=== PATIENT | female | born 1930 | race Caucasian/White ===

== ENCOUNTER → 2016-05-11 | Outpatient (CLI) | payer MEDICARE, BC ==
--- NOTE | 2016-05-11 15:38 | XR ---
EXAMINATION TYPE: XR chest 2V DATE OF EXAM: 05/11/2016 2:34 PM COMPARISON: 01/18/2013 HISTORY: 85-year-old female with cough TECHNIQUE: Frontal and lateral views FINDINGS: S-shaped scoliosis. Advanced degenerative change at the right shoulder. Possible chronic subluxation/ dislocation at the left shoulder. Heart is normal size. Similar mild elongation of the thoracic aorta. Relative upper lung lucencies an d mild hyperinflation. Mild interstitial prominence is unchanged as are prominent right-sided rib end s. No consolidation or pleural effusion. IMPRESSION: 1. Possible underlying COPD. No acute process seen. 2. Scoliosis and chronic changes at both shoulders.
== END | disposition home or self-care (01) ==
LOC: RADXRMAIN 13:59
PROVIDERS: ATTEND Family Medicine
DX: R05 Cough (principal)
CPT/HCPCS: 71020

== ENCOUNTER 2016-12-06 11:59 | Observation (INO) | payer MEDICARE, BC ==
[2016-12-06] MEDS ORDERED: SODIUM CHLORIDE 0.9% 500 ML IV STA (12:08)
[2016-12-06] MEDS ORDERED: MORPHINE SULFATE 2 MG/ML SYRINGE IVP STA (12:08)
--- NOTE | 2016-12-06 12:15 | ED ---
General Adult HPI - General Chief complaint: Back Pain/Injury Stated complaint: Back Pain Time Seen by Provider: 12/06/16 12:00 Source: patient, EMS, RN notes reviewed Mode of arrival: EMS Limitations: no limitations - History of Present Illness Initial comments: This is an 86-year-old female presents emergency department via EMS as of right upper back pain. Patient states she's had this pain many times before but today it was a little more severe so she called EMS. On arrival patient is tachycardic but she denies having any palpitations. Patient denies any chest pain patient denies radiation of the back pain. Patient denies any shortness of breath patient denies any recent fever chills or cough. Patient denies any calf pain patient denies any leg swelling. Patient states the pain is worse with movement and it hurts to palpate that area in her back. Patient denies any lightheadedness dizziness or syncopal episode. Patient denies any abdominal pain patient denies nausea vomiting diarrhea. - Related Data Home Medications Medication Instructions Recorded Confirmed amLODIPine BESYLATE [Norvasc] 5 mg PO DAILY 09/06/13 12/06/16 clonazePAM [KlonoPIN] 0.5 mg PO BID PRN 09/06/13 12/06/16 fluvoxaMINE [Luvox] 100 mg PO TID 09/06/13 12/06/16 lamoTRIgine [LaMICtal] 200 mg PO TID 09/06/13 12/06/16 Multivitamins, Thera [Multivitamin 1 tab PO DAILY 12/06/16 12/06/16 (formulary)] Allergies Allergy/AdvReac Type Severity Reaction Status Date / Time codeine AdvReac Nausea & Verified 12/06/16 13:04 Vomiting Review of Systems ROS Statement: Those systems with pertinent positive or pertinent negative responses have been documented in the HPI. ROS Other: All systems not noted in ROS Statement are negative. Past Medical History Past Medical History: GERD/Reflux, Hyperlipidemia, Hypertension Additional Past Medical History / Comment(s): Diverticulosis History of Any Multi-Drug Resistant Organisms: None Reported Past Surgical History: Appendectomy, Joint Replacement Additional Past Surgical History / Comment(s): Lt knee replacement x2 Past Psychological History: Anxiety, Depression Smoking Status: Never smoker Past Alcohol Use History: None Reported Past Drug Use History: None Reported General Exam - General Exam Comments Initial Comments: GENERAL: Patient is well-developed and well-nourished. Patient is nontoxic and well- hydrated and is in mild distress. ENT: Neck is soft and supple. No significant lymphadenopathy is noted. Oropharynx is clear. Moist mucous membranes. Neck has full range of motion without eliciting any pain. EYES: The sclera were anicteric and conjunctiva were pink and moist. Extraocular movements were intact and pupils were equal round and reactive to light. Eyelids were unremarkable. PULMONARY: Unlabored respirations. Good breath sounds bilaterally. No audible rales rhonchi or wheezing was noted. CARDIOVASCULAR: Patient is tachycardic at approximately 130 beats minute ABDOMEN: Soft and nontender with normal bowel sounds. No palpable organomegaly was noted. There is no palpable pulsatile mass. SKIN: Skin is clear with no lesions or rashes and otherwise unremarkable. NEUROLOGIC: Patient is alert and oriented x3. Cranial nerves II through XII are grossly intact. Motor and sensory are also intact. Normal speech, volume and content. Symmetrical smile. MUSCULOSKELETAL: Normal extremities with adequate strength and full range of motion. Palpating just medial to the right scapula causes the patient the same pain that she states she is here for. LYMPHATICS: No significant lymphadenopathy is noted PSYCHIATRIC: Normal psychiatric evaluation. Normal interpersonal interactions appears functionally intact in deals appropriately with others. No signs of depression. No signs of anxiety. No delusions. No hallucinations. Limitations: no limitations Course Vital Signs 12/06/16 12/06/16 12/06/16 12:04 12:53 14:06 Temperature 99.4 F Pulse Rate 129 H 113 H 115 H Respiratory 16 20 20 Rate Blood Pressure 159/88 141/82 135/79 O2 Sat by Pulse 96 99 98 Oximetry Medical Decision Making - Medical Decision Making EKG shows sinus tachycardia at 129 bpm VT interval is 138 QRS is under 26 QT interval 322 QTC is 471 per patient's EKG shows no ST segment elevation or depression or T wave abnormalities are noted. Patient left bundle branch block. Patient CAT scan it shows no PE but does however show 2 compression fractures in thoracic spine. Patient's family members stated that they believe these are old because they have been seeing the orthopedic surgeon for these. Patient remains tachycardic at about 120 beats a minute I spoke with Dr. Rooney he agrees we should admit the patient I admitted the patient and I consult cardiology - Lab Data Result diagrams: 12/06/16 12:10 12/06/16 12:10 Lab Results 12/06/16 12/06/16 12/06/16 Range/Units 12:10 12:10 12:10 WBC 10.9 H (3.8-10.6) k/uL RBC 4.47 (3.80-5.40) m/uL Hgb 13.7 (11.4-16.0) gm/dL Hct 41.7 (34.0-46.0) % MCV 93.2 (80.0-100.0) fL MCH 30.7 (25.0-35.0) pg MCHC 32.9 (31.0-37.0) g/dL RDW 13.6 (11.5-15.5) % Plt Count 550 H (150-450) k/uL Neutrophils % 72 % Lymphocytes % 18 % Monocytes % 6 % Eosinophils % 1 % Basophils % 1 % Neutrophils # 7.9 H (1.3-7.7) k/uL Lymphocytes # 2.0 (1.0-4.8) k/uL Monocytes # 0.7 (0-1.0) k/uL Eosinophils # 0.1 (0-0.7) k/uL Basophils # 0.1 (0-0.2) k/uL PT (9.0-12.0) sec INR (<1.2) APTT (22.0-30.0) sec Sodium 132 L (137-145) mmol/L Potassium 4.7 (3.5-5.1) mmol/L Chloride 97 L (98-107) mmol/L Carbon Dioxide 26 (22-30) mmol/L Anion Gap 9 mmol/L BUN 11 (7-17) mg/dL Creatinine 0.71 (0.52-1.04) mg/dL Est GFR (MDRD) Af Amer >60 (>60 ml/min/1.73 sqM) Est GFR (MDRD) Non-Af >60 (>60 ml/min/1.73 sqM) Glucose 103 H (74-99) mg/dL Calcium 9.0 (8.4-10.2) mg/dL Magnesium 1.8 (1.6-2.3) mg/dL Total Bilirubin 0.6 (0.2-1.3) mg/dL AST 26 (14-36) U/L ALT 27 (9-52) U/L Alkaline Phosphatase 108 (38-126) U/L Total Creatine Kinase 88 (30-135) U/L CK-MB (CK-2) 3.0 H* (0.0-2.4) ng/mL CK-MB (CK-2) Rel Index 3.4 Troponin I (0.000-0.034) ng/mL Total Protein 7.0 (6.3-8.2) g/dL Albumin 4.3 (3.5-5.0) g/dL Urine Color Urine Appearance (Clear) Urine pH (5.0-8.0) Ur Specific [place] (1.001-1.035) Urine Protein (Negative) Urine Glucose (UA) (Negative) Urine Ketones (Negative) Urine Blood (Negative) Urine Nitrite (Negative) Urine Bilirubin (Negative) Urine Urobilinogen (<2.0) mg/dL Ur Leukocyte Esterase (Negative) 12/06/16 12/06/16 12/06/16 Range/Units 12:10 12:10 12:10 WBC (3.8-10.6) k/uL RBC (3.80-5.40) m/uL Hgb (11.4-16.0) gm/dL Hct (34.0-46.0) % MCV (80.0-100.0) fL MCH (25.0-35.0) pg MCHC (31.0-37.0) g/dL RDW (11.5-15.5) % Plt Count (150-450) k/uL Neutrophils % % Lymphocytes % % Monocytes % % Eosinophils % % Basophils % % Neutrophils # (1.3-7.7) k/uL Lymphocytes # (1.0-4.8) k/uL Monocytes # (0-1.0) k/uL Eosinophils # (0-0.7) k/uL Basophils # (0-0.2) k/uL PT 10.0 (9.0-12.0) sec INR 1.0 (<1.2) APTT 26.8 (22.0-30.0) sec Sodium (137-145) mmol/L Potassium (3.5-5.1) mmol/L Chloride (98-107) mmol/L Carbon Dioxide (22-30) mmol/L Anion Gap mmol/L BUN (7-17) mg/dL Creatinine (0.52-1.04) mg/dL Est GFR (MDRD) Af Amer (>60 ml/min/1.73 sqM) Est GFR (MDRD) Non-Af (>60 ml/min/1.73 sqM) Glucose (74-99) mg/dL Calcium (8.4-10.2) mg/dL Magnesium (1.6-2.3) mg/dL Total Bilirubin (0.2-1.3) mg/dL AST (14-36) U/L ALT (9-52) U/L Alkaline Phosphatase (38-126) U/L Total Creatine Kinase (30-135) U/L CK-MB (CK-2) (0.0-2.4) ng/mL CK-MB (CK-2) Rel Index Troponin I <0.012 (0.000-0.034) ng/mL Total Protein (6.3-8.2) g/dL Albumin (3.5-5.0) g/dL Urine Color Urine Appearance (Clear) Urine pH (5.0-8.0) Ur Specific [place] (1.001-1.035) Urine Protein (Negative) Urine Glucose (UA) (Negative) Urine Ketones (Negative) Urine Blood (Negative) Urine Nitrite (Negative) Urine Bilirubin (Negative) Urine Urobilinogen (<2.0) mg/dL Ur Leukocyte Esterase (Negative) 12/06/16 Range/Units 13:09 WBC (3.8-10.6) k/uL RBC (3.80-5.40) m/uL Hgb (11.4-16.0) gm/dL Hct (34.0-46.0) % MCV (80.0-100.0) fL MCH (25.0-35.0) pg MCHC (31.0-37.0) g/dL RDW (11.5-15.5) % Plt Count (150-450) k/uL Neutrophils % % Lymphocytes % % Monocytes % % Eosinophils % % Basophils % % Neutrophils # (1.3-7.7) k/uL Lymphocytes # (1.0-4.8) k/uL Monocytes # (0-1.0) k/uL Eosinophils # (0-0.7) k/uL Basophils # (0-0.2) k/uL PT (9.0-12.0) sec INR (<1.2) APTT (22.0-30.0) sec Sodium (137-145) mmol/L Potassium (3.5-5.1) mmol/L Chloride (98-107) mmol/L Carbon Dioxide (22-30) mmol/L Anion Gap mmol/L BUN (7-17) mg/dL Creatinine (0.52-1.04) mg/dL Est GFR (MDRD) Af Amer (>60 ml/min/1.73 sqM) Est GFR (MDRD) Non-Af (>60 ml/min/1.73 sqM) Glucose (74-99) mg/dL Calcium (8.4-10.2) mg/dL Magnesium (1.6-2.3) mg/dL Total Bilirubin (0.2-1.3) mg/dL AST (14-36) U/L ALT (9-52) U/L Alkaline Phosphatase (38-126) U/L Total Creatine Kinase (30-135) U/L CK-MB (CK-2) (0.0-2.4) ng/mL CK-MB (CK-2) Rel Index Troponin I (0.000-0.034) ng/mL Total Protein (6.3-8.2) g/dL Albumin (3.5-5.0) g/dL Urine Color Colorless Urine Appearance Clear (Clear) Urine pH 7.0 (5.0-8.0) Ur Specific [place] 1.005 (1.001-1.035) Urine Protein Negative (Negative) Urine Glucose (UA) Negative (Negative) Urine Ketones Negative (Negative) Urine Blood Negative (Negative) Urine Nitrite Negative (Negative) Urine Bilirubin Negative (Negative) Urine Urobilinogen <2.0 (<2.0) mg/dL Ur Leukocyte Esterase Negative (Negative) Disposition Clinical Impression: Thoracic back pain, Tachycardia Disposition: ADMITTED IP TO THIS [facility] Referrals: Adriana Perla MD [Primary Care Provider] - 1-2 days Time of Disposition: 15:09
[2016-12-06 12:33] LABS: ALT 27 U/L (9-52); AST 26 U/L (14-36); Alkaline Phosphatase 108 U/L (38-126); Anion Gap 9 mmol/L; Blood Urea Nitrogen 11 mg/dL (7-17); Carbon Dioxide 26 mmol/L (22-30); Chloride 97 mmol/L (98-107); Glucose 103 mg/dL (74-99); Magnesium 1.8 mg/dL (1.6-2.3); Non-African American GFR(MDRD) >60 (>60 ml/min/1.73 sqM); Sodium 132 mmol/L (137-145); Total Bilirubin 0.6 mg/dL (0.2-1.3)
[2016-12-06 12:35] LABS: Basophils # (A) 0.1 k/uL (0-0.2); Basophils % (A) 1 %; CH 31.4; CHCM 33.8; Eosinophils # (A) 0.1 k/uL (0-0.7); Eosinophils % (A) 1 %; HCT 41.7 % (34.0-46.0); HDW 2.18; HGB 13.7 gm/dL (11.4-16.0); Luc # (Auto) 0.19; Luc % (Auto) 2; Lymphocytes % (A) 18 %; MCH 30.7 pg (25.0-35.0); MCHC 32.9 g/dL (31.0-37.0); MCV 93.2 fL (80.0-100.0); Mean Platelet Volume 7.5; Monocytes # (A) 0.7 k/uL (0-1.0); Monocytes % (A) 6 %; Neutrophils # (A) 7.9 k/uL (1.3-7.7); Neutrophils % (A) 72 %; RBC 4.47 m/uL (3.80-5.40); RDW 13.6 % (11.5-15.5); WBC 10.9 k/uL (3.8-10.6); WBC (Perox) 10.66
[2016-12-06 12:42] LABS: Potassium 4.7 mmol/L (3.5-5.1)
--- NOTE | 2016-12-06 12:46 | XR ---
EXAMINATION TYPE: XR chest 2V DATE OF EXAM: 12/06/2016 COMPARISON: 05/11/2016 HISTORY: 86-year-old female with chest pain TECHNIQUE: AP and lateral views FINDINGS: Heart is normal size. S-shaped scoliosis. Elongation/ectasia of the thoracic aorta. Nodular densities right suprahilar, infrahilar, and hilar regions appear more pronounced from prior exam. Underlying p ulmonary nodules not excluded. No edgardo consolidation or pleural effusion. Minimal strandy atelectasi s posterior base. End-stage degenerative change at the shoulders. IMPRESSION: Chronic changes with some right-sided perihilar nodularity increased from prior may represent summati on artifact. Underlying pulmonary nodules not excluded. Short interval follow-up radiographs versus c ontrast enhanced CT to further evaluate. Otherwise, no acute process.
[2016-12-06] MEDS ORDERED: RX INFO: IV CONTRAST WAS GIVEN 1 EACH MISC MISCELLANE PRN (13:10)
[2016-12-06 13:24] LABS: Appearance,Urine Clear (Clear); Bilirubin,Urine Negative (Negative); Glucose,Urine (UA) Negative (Negative); Ketones,Urine Negative (Negative); Leukocyte Esterase,Urine Negative (Negative); Nitrite,Urine Negative (Negative); Protein,Urine Negative (Negative); Specific Gravity,Urine 1.005 (1.001-1.035); UA Billing (MACRO vs. MICRO) CHEM; Urobilinogen,Urine <2.0 mg/dL (<2.0)
--- NOTE | 2016-12-06 14:27 | CT ---
EXAMINATION TYPE: CT chest angio for PE DATE OF EXAM: 12/06/2016 COMPARISON: 01/18/2013 HISTORY: 86-year-old female complains of upper back pain. TECHNIQUE: Contiguous axial scanning of the chest performed with IV Contrast, patient injected with 1 00 mL of Omnipaque 350. Coronal/sagittal MIP reconstructions performed. CT DLP: 529 mGycm Automated exposure control for dose reduction was used. FINDINGS: Heart is normal size. There is trace basilar pericardial fluid. Coronary vessel calcifications are pr esent and are remarkable for coronary artery disease. Aorta is normal caliber with conventional arch vessel branching anatomy with moderate atherosclerotic plaque and calcification. No aortic dissection is seen. Satisfactory opacification of the pulmonary arterial system without evidence for pulmonary embolus. No thoracic lymphadenopathy by CT size criteria. Evaluation of the lungs shows some mild dependent atelectasis, mild bibasilar bronchiectasis, no cons olidation or pleural effusion. Some retained fluid within the mid thoracic esophagus. Small hiatal hernia. Bones: Severe endstage degenerative change at the right greater than left shoulders with associated j oint effusion and ganglion cyst formation. Mild anterior wedging T7 and T8 is new from 01/18/2013. Superior endplate deformity of T1 and T12 with anterior wedging of L1 are stable from 01/18/2013. No retropulsion into the spinal canal. IMPRESSION: 1. NO EVIDENCE FOR PULMONARY EMBOLUS. 2. MILD ANTERIOR WEDGING OF T7 AND T8 IS NEW FROM 01/18/2013. THESE ARE AGE INDETERMINATE MILD KIRA LOR INJURIES. CORRELATE FOR FOCAL PAIN AT THESE LEVELS.
[2016-12-06] MEDS ORDERED: MORPHINE SULFATE 2 MG/ML SYRINGE IVP ONE (14:43)
[2016-12-06] MEDS ORDERED: KETOROLAC 30 MG/ML 1 ML VIAL IVP STA (14:43)
[2016-12-06] MEDS ORDERED: SODIUM CHLORIDE 0.9% 1,000 ML IV ONE (15:09)
[2016-12-06] MEDS: amLODIPine 5 MG TAB PO SCH (20:36)
[2016-12-06] MEDS: lamoTRIgine 100 MG TAB PO SCH (20:36)
[2016-12-06] MEDS: clonazePAM 0.5 MG TAB PO PRN (20:43)
[2016-12-07] MEDS: ACETAMINOPHEN TAB 325 MG TAB PO PRN ×2 (08:44→18:59)
[2016-12-07] MEDS: amLODIPine 5 MG TAB PO SCH (08:45)
[2016-12-07] MEDS: MULTIVITAMINS, THERA 1 EACH TAB PO SCH (08:45)
[2016-12-07] MEDS: lamoTRIgine 100 MG TAB PO SCH ×3 (08:45→20:30)
--- NOTE | 2016-12-07 08:45 | P.CRDCN ---
<Mable Craft E - Last Filed: 12/07/16 08:35> History of Present Illness Consult date: 12/07/16 Requesting physician: Ninoska Garza Reason for Consult (text): Tachycardia Chief complaint: Mid back discomfort History of present illness: This is a pleasant 86-year-old female with history of hypertension, hyperlipidemia, chronic back discomfort, who over the past couple of years walks with a walker and uses a wheelchair because of the pain she incurs with walking secondary to her back problems. She presents to the hospital with symptoms of mid to upper back discomfort which started yesterday. She states that the pain worsened with particular movements and on palpation of that particular area in her back. She denies any associated symptoms of chest discomfort, no shortness of breath, no dizziness or lightheadedness, no palpitations. EKG on arrival here showed a sinus tachycardia with a left bundle -branch block pattern. EKG which was performed in 2013 showed a left bundle- branch block pattern at that time as well. Chest x-ray reveals chronic changes with some right-sided perihilar nodularity increased from prior. May represent artifact. Underlying pulmonary nodules not excluded. CTA of the chest was performed which is negative for pulmonary embolism. Mild anterior wedging of T7 and T8 new from 2012. Mild compression injuries possible. Blood pressure on arrival 158/88, heart rate in the 120s. Temperature 99.4, 96% on room air. Blood pressure this morning 108/60 with a heart rate of 90s to 1 teens. White blood cell count on arrival 10.9, hemoglobin 13.7, platelet count 550. Sodium 132, potassium 4.7, BUN 11, creatinine 0.7. Troponin 0.012. At the time of my examination this morning, patient states the back pain is much improved. Past Medical History Past Medical History: GERD/Reflux, Hyperlipidemia, Hypertension Additional Past Medical History / Comment(s): Diverticulosis History of Any Multi-Drug Resistant Organisms: None Reported Past Surgical History: Appendectomy, Joint Replacement Additional Past Surgical History / Comment(s): Lt knee replacement x2 Past Psychological History: Anxiety, Depression Smoking Status: Never smoker Past Alcohol Use History: None Reported Past Drug Use History: None Reported Medications and Allergies Home Medications Medication Instructions Recorded Confirmed Type clonazePAM [KlonoPIN] 0.5 mg PO BID PRN 09/06/13 12/20/16 History fluvoxaMINE [Luvox] 100 mg PO TID 09/06/13 12/20/16 History lamoTRIgine [LaMICtal] 200 mg PO TID 09/06/13 12/20/16 History Multivitamins, Thera [Multivitamin 1 tab PO DAILY 12/06/16 12/20/16 History (formulary)] Lisinopril [Zestril] 5 mg PO DAILY #30 tab 12/08/16 12/20/16 Rx Metoprolol Tartrate 25 mg PO BID #60 tab 12/08/16 12/20/16 Rx Spironolactone [Aldactone] 25 mg PO DAILY #30 tablet 12/08/16 12/20/16 Rx amLODIPine [Norvasc] 5 mg PO DAILY 12/20/16 12/20/16 History Allergies Allergy/AdvReac Type Severity Reaction Status Date / Time codeine AdvReac Nausea & Verified 12/21/16 12:41 Vomiting Physical Exam Vitals: Vital Signs Temp Pulse Pulse Resp BP BP Pulse Ox 12/07/16 03:37 97.4 F L 113 H 18 108/63 93 L 12/07/16 03:35 113 H 18 12/07/16 00:00 97.1 F L 92 18 115/63 93 L 12/06/16 23:45 92 16 12/06/16 20:00 98.2 F 105 H 16 134/73 95 12/06/16 16:48 98.1 F 120 H 20 167/77 98 12/06/16 16:25 20 12/06/16 15:29 98.3 F 112 H 20 157/76 99 12/06/16 15:24 98.1 F 109 H 20 164/79 98 12/06/16 14:06 115 H 20 135/79 98 12/06/16 12:53 113 H 20 141/82 99 12/06/16 12:04 99.4 F 129 H 16 159/88 96 Intake and Output 12/06/16 12/07/16 12/07/16 22:59 06:59 14:59 Intake Total 1400 Output Total 500 200 Balance 900 -200 Intake: Intake, IV Titration 1100 Amount Sodium Chloride 0.9% 1, 600 000 ml @ 100 mls/hr IV . Q10H ONE Rx#:[id number] Sodium Chloride 0.9% 500 500 ml @ 999 mls/hr IV .Q31M STA Rx#:[id number] Oral 300 Output: Urine 500 200 Other: Voiding Method Bedside Commode Bedside Commode # Voids 1 1 Weight 54.431 kg 52.4 kg PHYSICAL EXAMINATION: HEENT: Head is atraumatic, normocephalic. Pupils equal, round. Neck is supple. There is no elevated jugular venous pressure. HEART EXAMINATION: Heart S1, S2 tachycardic . No murmur or gallop heard. CHEST EXAMINATION: Lungs are clear to auscultation and precussion. No chest wall tenderness is noted on palpation or with deep breathing. ABDOMEN: Soft, nontender. Bowel sounds are heard. No organomegaly noted. EXTREMITIES: 2+ peripheral pulses with no evidence of peripheral edema and no calf tenderness noted. NEUROLOGIC patient is awake, alert and oriented -3. . Results 12/06/16 12:10 12/06/16 12:10 Cardiac Enzymes 12/06/16 12/06/16 12/06/16 Range/Units 12:10 12:10 12:10 AST 26 (14-36) U/L CK-MB (CK-2) 3.0 H* (0.0-2.4) ng/mL Troponin I <0.012 (0.000-0.034) ng/mL Coagulation 12/06/16 12/06/16 Range/Units 12:10 12:10 PT 10.0 (9.0-12.0) sec APTT 26.8 (22.0-30.0) sec CBC 12/06/16 Range/Units 12:10 WBC 10.9 H (3.8-10.6) k/uL RBC 4.47 (3.80-5.40) m/uL Hgb 13.7 (11.4-16.0) gm/dL Hct 41.7 (34.0-46.0) % Plt Count 550 H (150-450) k/uL Comprehensive Metabolic Panel 12/06/16 Range/Units 12:10 Sodium 132 L (137-145) mmol/L Potassium 4.7 (3.5-5.1) mmol/L Chloride 97 L (98-107) mmol/L Carbon Dioxide 26 (22-30) mmol/L BUN 11 (7-17) mg/dL Creatinine 0.71 (0.52-1.04) mg/dL Glucose 103 H (74-99) mg/dL Calcium 9.0 (8.4-10.2) mg/dL AST 26 (14-36) U/L ALT 27 (9-52) U/L Alkaline Phosphatase 108 (38-126) U/L Total Protein 7.0 (6.3-8.2) g/dL Albumin 4.3 (3.5-5.0) g/dL Current Medications Generic Name Dose Route Start Last Admin Trade Name Freq PRN Reason Stop Dose Admin Amlodipine Besylate 5 mg 12/06/16 18:15 12/06/16 20:36 Norvasc PO 5 mg DAILY NGHIA Administration Clonazepam 0.5 mg 12/06/16 18:15 12/06/16 20:43 Klonopin PO 0.5 mg BID PRN Administration Anxiety Fluvoxamine Maleate 100 mg 12/06/16 22:00 12/06/16 20:36 Luvox PO 100 mg TID NGHIA Administration Lamotrigine 200 mg 12/06/16 22:00 12/06/16 20:36 Lamictal PO 200 mg TID NGHIA Administration Miscellaneous Information 1 each 12/06/16 13:10 12/06/16 14:41 Rx Info: Iv Contrast Was Given MISCELLANE 12/08/16 13:10 1 each DAILY PRN Administration Per Protocol Multivitamins 1 each 12/07/16 12:00 Theragran PO 1200 NGHIA Intake and Output 12/06/16 12/07/16 12/07/16 22:59 06:59 14:59 Intake Total 1400 Output Total 500 200 Balance 900 -200 Intake: Intake, IV Titration 1100 Amount Sodium Chloride 0.9% 1, 600 000 ml @ 100 mls/hr IV . Q10H ONE Rx#:[id number] Sodium Chloride 0.9% 500 500 ml @ 999 mls/hr IV .Q31M STA Rx#:[id number] Oral 300 Output: Urine 500 200 Other: Voiding Method Bedside Commode Bedside Commode # Voids 1 1 Weight 54.431 kg 52.4 kg 12/06/16 12:10 12/06/16 12:10 EKG Interpretations (text) EKG shows a sinus tachycardia with left bundle branch block pattern. Assessment and Plan Plan: Assessment and plan #1 mid to upper back pain EtOH chest negative for pulmonary embolism. There is evidence of mild anterior wedging of T7 and T8 which appears to be new from 2012. #2 sinus tachycardia with left bundle branch block pattern, patient was noted to have a left bundle-branch block back in 2013 as well. #3 hypertension #4 hyperlipidemia #5 chronic back pain Plan We will obtain an echocardiogram with Doppler study. We will also obtain a free T4 and TSH level. Further recommendations to follow. DNP note has been reviewed, I agree with a documented findings and plan of care. Patient was seen and examined. <Amanda Orellana - Last Filed: 01/05/17 13:05> Results 12/07/16 09:14 12/07/16 09:14 12/07/16 09:14 12/07/16 09:14
[2016-12-07 09:29] LABS: CH 30.5; CHCM 32.7; HCT 37.9 % (34.0-46.0); HDW 2.21; HGB 12.5 gm/dL (11.4-16.0); MCH 30.8 pg (25.0-35.0); MCV 93.5 fL (80.0-100.0); Mean Platelet Volume 6.6; RBC 4.05 m/uL (3.80-5.40); RDW 13.1 % (11.5-15.5); WBC 8.2 k/uL (3.8-10.6)
[2016-12-07 10:04] LABS: Anion Gap 7 mmol/L; Blood Urea Nitrogen 12 mg/dL (7-17); Calcium 8.8 mg/dL (8.4-10.2); Carbon Dioxide 27 mmol/L (22-30); Chloride 97 mmol/L (98-107); Glucose 103 mg/dL (74-99); Non-African American GFR(MDRD) >60 (>60 ml/min/1.73 sqM); Potassium 4.5 mmol/L (3.5-5.1); Sodium 131 mmol/L (137-145)
--- NOTE | 2016-12-07 10:33 | ECHOF ---
Referral Reason:tachycardia MEASUREMENTS -------- HEIGHT: 152.4 cm WEIGHT: 52.2 kg BP: 126/73 RVIDd: 2.7 cm (< 3.3) IVSd: 1.2 cm (0.6 - 1.1) LVIDd: 4.8 cm (3.9 - 5.3) LVPWd: 1.1 cm (0.6 - 1.1) IVSs: 1.6 cm LVIDs: 4.0 cm LVPWs: 1.5 cm LA Diam: 3.7 cm (2.7 - 3.8) LAESV Index (A-L): 27.64 ml/m Ao Diam: 3.3 cm (2.0 - 3.7) AV Cusp: 2.0 cm (1.5 - 2.6) MV EXCURSION: 10.933 mm (> 18.000) MV EF SLOPE: 119 mm/s (70 - 150) EPSS: 0.6 cm RAP: 5.00 mmHg RVSP: 33.38 mmHg FINDINGS -------- This was a technically good study. The left ventricular size is normal. There is borderline concentric left ventricular hypertrophy. Overall left ventricular systolic function is severely impaired with, an EF between 25 - 30 %. Mid inferoseptal LV wall motion is hypokinetic. Apical anterior LV wall motion is hypokinetic. Apical inferior LV wall motion is hypokinetic. Apical septum LV wall motion is hypokinetic. The right ventricle is normal in size. Normal LA size by volume 22+/-6 ml/m2. The right atrium is normal in size. There is mild aortic valve sclerosis. The mitral valve leaflets are mildly thickened. Moderate mitral annular calcification present. Mild mitral regurgitation is present. Mild tricuspid regurgitation present. Right ventricular systolic pressure is normal at < 35 mmHg. Trace/mild (physiologic) pulmonic regurgitation. The aortic root size is normal. Normal inferior vena cava with normal inspiratory collapse consistent with estimated right atrial pressure of 5 mmHg. There is no pericardial effusion. CONCLUSIONS -------- 1. This was a technically good study. 2. Normal LA size by volume 22+/-6 ml/m2. 3. The right atrium is normal in size. 4. There is mild aortic valve sclerosis. 5. The mitral valve leaflets are mildly thickened. 6. Moderate mitral annular calcification present. 7. Mild mitral regurgitation is present. 8. Mild tricuspid regurgitation present. 9. Right ventricular systolic pressure is normal at < 35 mmHg. 10. Trace/mild (physiologic) pulmonic regurgitation. 11. The aortic root size is normal. 12. The left ventricular size is normal. 13. Normal inferior vena cava with normal inspiratory collapse consistent with estimated right atrial pressure of 5 mmHg. 14. There is no pericardial effusion. 15. There is borderline concentric left ventricular hypertrophy. 16. Overall left ventricular systolic function is severely impaired with, an EF between 25 - 30 %. 17. Mid inferoseptal LV wall motion is hypokinetic. 18. Apical anterior LV wall motion is hypokinetic. 19. Apical inferior LV wall motion is hypokinetic. 20. Apical septum LV wall motion is hypokinetic. 21. The right ventricle is normal in size. PROPERTY VALUER: Cindy Gardiner RDCS
[2016-12-07] MEDS: clonazePAM 0.5 MG TAB PO PRN ×2 (11:30→20:30)
[2016-12-07 11:43] VITALS: BMI 22.5
--- NOTE | 2016-12-07 11:49 | P.HPIM ---
History of Present Illness H&P Date: 12/07/16 Chief Complaint: Worsening back pain This is a 86-year-old female with past medical history noted below significant for chronic back pain that presented to the hospital with acute on chronic back pain. Patient said that her pain started all of a sudden and was mostly in the neck and upper back area. She said that there was no fall or trauma involved. Patient reported that her pain is usually chronic and she is usually unable to ambulate secondary to chronic pain. She usually uses a walker for short distances in the wheelchair. She said that her pain was approximately 8 out of 10 in severity and decided to come to the emergency room for further evaluation. When seen in the emergency room, initial EKG showed evidence of sinus tachycardia with heart rate up to the 130s. Patient was hemodynamically stable. She did not feel any dizziness or palpitation. No chest pain or shortness of breath. She was also noted to have evidence of left bundle branch block was found to be old compared to prior EKG. Patient was admitted to the hospital and cardiology consultation was requested. Patient said that her back pain resolved quickly after arrival to the emergency room. Review of Systems Review of system: 14 points review of systems were obtained and were negative except to what were mentioned in the HPI. Past Medical History Past Medical History: GERD/Reflux, Hyperlipidemia, Hypertension Additional Past Medical History / Comment(s): Diverticulosis History of Any Multi-Drug Resistant Organisms: None Reported Past Surgical History: Appendectomy, Joint Replacement Additional Past Surgical History / Comment(s): Lt knee replacement x2 Past Psychological History: Anxiety, Depression Smoking Status: Never smoker Past Alcohol Use History: None Reported Past Drug Use History: None Reported Medications and Allergies Home Medications Medication Instructions Recorded Confirmed Type amLODIPine BESYLATE [Norvasc] 5 mg PO DAILY 09/06/13 12/06/16 History clonazePAM [KlonoPIN] 0.5 mg PO BID PRN 09/06/13 12/06/16 History fluvoxaMINE [Luvox] 100 mg PO TID 09/06/13 12/06/16 History lamoTRIgine [LaMICtal] 200 mg PO TID 09/06/13 12/06/16 History Multivitamins, Thera [Multivitamin 1 tab PO DAILY 12/06/16 12/06/16 History (formulary)] Allergies Allergy/AdvReac Type Severity Reaction Status Date / Time codeine AdvReac Nausea & Verified 12/06/16 13:04 Vomiting Physical Exam Vitals: Vital Signs Temp Pulse Pulse Resp BP BP Pulse Ox 12/07/16 11:26 98.2 F 108 H 18 123/74 95 12/07/16 08:00 98.6 F 91 18 126/73 96 12/07/16 03:37 97.4 F L 113 H 18 108/63 93 L 12/07/16 03:35 113 H 18 12/07/16 00:00 97.1 F L 92 18 115/63 93 L 12/06/16 23:45 92 16 12/06/16 20:00 98.2 F 105 H 16 134/73 95 12/06/16 16:48 98.1 F 120 H 20 167/77 98 12/06/16 16:25 20 12/06/16 15:29 98.3 F 112 H 20 157/76 99 12/06/16 15:24 98.1 F 109 H 20 164/79 98 12/06/16 14:06 115 H 20 135/79 98 12/06/16 12:53 113 H 20 141/82 99 12/06/16 12:04 99.4 F 129 H 16 159/88 96 Intake and Output 12/06/16 12/07/16 12/07/16 22:59 06:59 14:59 Intake Total 1400 40 Output Total 500 200 Balance 900 -200 40 Intake: Intake, IV Titration 1100 Amount Sodium Chloride 0.9% 1, 600 000 ml @ 100 mls/hr IV . Q10H ONE Rx#:[id number] Sodium Chloride 0.9% 500 500 ml @ 999 mls/hr IV .Q31M STA Rx#:[id number] Oral 300 40 Output: Urine 500 200 Other: Voiding Method Bedside Commode Bedside Commode Bedside Commode # Voids 1 1 Weight 54.431 kg 52.4 kg General: The patient is awake and alert, in no distress Eye: there is normal conjunctiva bilaterally. Neck: The neck is supple, there is no JVD. Cardiovascular: Normal S1-S2, no S3-S4, no murmurs. Respiratory: Lungs clear to auscultation bilaterally Gastrointestinal: Abdomen is soft, nontender Musculoskeletal: There is no pedal edema. Neurological:. Speech is normal. Skin: Skin is warm and dry Results CBC & Chem 7: 12/07/16 09:14 12/07/16 09:14 Labs: Abnormal Lab Results - Last 24 Hours (Table) 12/06/16 12/06/16 12/06/16 Range/Units 12:10 12:10 12:10 WBC 10.9 H (3.8-10.6) k/uL Plt Count 550 H (150-450) k/uL Neutrophils # 7.9 H (1.3-7.7) k/uL Sodium 132 L (137-145) mmol/L Chloride 97 L (98-107) mmol/L Glucose 103 H (74-99) mg/dL CK-MB (CK-2) 3.0 H* (0.0-2.4) ng/mL 12/07/16 12/07/16 Range/Units 09:14 09:14 WBC (3.8-10.6) k/uL Plt Count 518 H (150-450) k/uL Neutrophils # (1.3-7.7) k/uL Sodium 131 L (137-145) mmol/L Chloride 97 L (98-107) mmol/L Glucose 103 H (74-99) mg/dL CK-MB (CK-2) (0.0-2.4) ng/mL Thrombosis Risk Factor Assmnt - Choose All That Apply Any of the Below Risk Factors Present?: No Other Risk Factors: Yes Each Risk Factor Represents 3 Points: Age 75 years or older Thrombosis Risk Factor Assessment Total Risk Factor Score: 3 Thrombosis Risk Factor Assessment Level: Moderate Risk Assessment and Plan Plan: 1. Sinus tachycardia, may be attributed to uncontrolled pain. Heart rate better controlled. Patient was seen and evaluated by cardiology. Echocardiogram ordered. Thyroid function tests ordered as well. 2. 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 Unclear how chronic it is. I will start the patient on low-dose beta kacey. Cardiology following. 3. Chronic back pain with known compression fracture involving T7 and T8 currently pain is well controlled 4. Essential hypertension: Blood pressure within acceptable range 5. Mixed hyperlipidemia Today, I reviewed her medication list and lab work results. Appreciate staff consultant's recommendations. Continue current regimen otherwise. Repeat lab work in the morning. We will consult PT/OT. Patient is not interested in going to rehab and wants to go home as her is terminally ill and would like to spend more time with him.
[2016-12-07] MEDS ORDERED: METOPROLOL TARTRATE 12.5 MG TAB PO SCH (12:00)
[2016-12-07] MEDS: CARVEDILOL 3.125 MG TAB PO SCH ×2 (12:33→17:15)
[2016-12-07] MEDS: LISINOPRIL 5 MG TAB PO SCH (12:33)
[2016-12-07] MEDS: HEPARIN SODIUM,PORCINE 5,000 UNIT/ML 1 ML VIAL SQ SCH (20:30)
[2016-12-07 20:46] VITALS: RESP 18
[2016-12-08] MEDS: ACETAMINOPHEN TAB 325 MG TAB PO PRN ×3 (03:16→14:52)
[2016-12-08] MEDS: CARVEDILOL 3.125 MG TAB PO SCH (06:51)
[2016-12-08] MEDS: HEPARIN SODIUM,PORCINE 5,000 UNIT/ML 1 ML VIAL SQ SCH (09:24)
[2016-12-08] MEDS: lamoTRIgine 100 MG TAB PO SCH (09:24)
[2016-12-08] MEDS: LISINOPRIL 5 MG TAB PO SCH (09:24)
[2016-12-08] MEDS: MULTIVITAMINS, THERA 1 EACH TAB PO SCH (11:12)
--- NOTE | 2016-12-08 12:33 | P.DS ---
Providers Date of admission: 12/06/16 15:09 Expected date of discharge: 12/08/16 Attending physician: Ninoska Garza Consults: 12/06/16 15:09 Consult Physician Urgent Consulting Provider: [facility] Consult Reason/Comments: Tachycardia Do you want consulting provider notified?: Yes Primary care physician: Adriana Perla [facility] Course: This is a 86-year-old female with past medical history noted below significant for chronic back pain who presented to the emergency room with worsening of her symptoms and pain. She was evaluated and was found to have significant sinus tachycardia with heart rate up to the 130s. D-dimer was slightly elevated but computed tomography scan of the chest showed no evidence of PE. Patient was admitted to telemetry floor and cardiology were consulted. Thyroid function tests checked and normal. Echocardiogram showed evidence of underlying cardiomyopathy with ejection fraction of 20%. This is of unclear etiology or chronicity. Patient's regimen was adjusted and optimized with beta blockers and Aldactone. She would be discharged home in a stable condition. She will follow-up with cardiology next week. Of note, patient's back pain improved upon her presentation to the emergency room and is now back to her baseline. She is usually nonambulatory and uses a wheelchair to walk around. Sometimes she is able to walk a few steps using a walker. Patient did not want to stay in the hospital any longer as her is terminally ill and she would like to go spend time with him. Below is a list of her medical problems addressed during this hospitalization. Please refer to the medication reconciliation for discharge medication list 1. Sinus tachycardia, may be attributed to uncontrolled pain. Heart rate better controlled. Patient was seen and evaluated by cardiology. Echocardiogram ordered. Thyroid function tests ordered as well. 2. 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 Unclear how chronic it is. I will start the patient on low-dose beta kacey. Cardiology following. 3. Chronic back pain with known compression fracture involving T7 and T8 currently pain is well controlled 4. Essential hypertension: Blood pressure within acceptable range 5. Mixed hyperlipidemia Plan - Discharge Summary New Discharge Prescriptions: New Lisinopril [Zestril] 5 mg PO DAILY #30 tab Metoprolol Tartrate 25 mg PO BID #60 tab Spironolactone [Aldactone] 25 mg PO DAILY #30 tablet Continue fluvoxaMINE [Luvox] 100 mg PO TID lamoTRIgine [LaMICtal] 200 mg PO TID clonazePAM [KlonoPIN] 0.5 mg PO BID PRN PRN Reason: Anxiety Multivitamins, Thera [Multivitamin (formulary)] 1 tab PO DAILY Discontinued amLODIPine BESYLATE [Norvasc] 5 mg PO DAILY Discharge Medication List clonazePAM [KlonoPIN] 0.5 mg PO BID PRN 09/06/13 [History] fluvoxaMINE [Luvox] 100 mg PO TID 09/06/13 [History] lamoTRIgine [LaMICtal] 200 mg PO TID 09/06/13 [History] Multivitamins, Thera [Multivitamin (formulary)] 1 tab PO DAILY 12/06/16 [History ] Lisinopril [Zestril] 5 mg PO DAILY #30 tab 12/08/16 [Rx] Metoprolol Tartrate 25 mg PO BID #60 tab 12/08/16 [Rx] Spironolactone [Aldactone] 25 mg PO DAILY #30 tablet 12/08/16 [Rx] Follow up Appointment(s)/Referral(s): Adriana Perla MD [Primary Care Provider] - 3 Days Amanda Orellana MD [STAFF PHYSICIAN] - 1 Week Discharge Disposition: HOME SELF-CARE
--- NOTE | 2016-12-08 15:26 | P.PN ---
Subjective Principal diagnosis: tachycardia, cardiomyopathy This is a pleasant 86-year-old female with history of hypertension, hyperlipidemia, chronic back discomfort, who over the past couple of years walks with a walker and uses a wheelchair because of the pain she incurs with walking secondary to her back problems. She presents to the hospital with symptoms of mid to upper back discomfort which started yesterday. She states that the pain worsened with particular movements and on palpation of that particular area in her back. She denies any associated symptoms of chest discomfort, no shortness of breath, no dizziness or lightheadedness, no palpitations. EKG on arrival here showed a sinus tachycardia with a left bundle -branch block pattern. EKG which was performed in 2013 showed a left bundle- branch block pattern at that time as well. Chest x-ray reveals chronic changes with some right-sided perihilar nodularity increased from prior. May represent artifact. Underlying pulmonary nodules not excluded. CTA of the chest was performed which is negative for pulmonary embolism. Mild anterior wedging of T7 and T8 new from 2012. Mild compression injuries possible. Blood pressure on arrival 158/88, heart rate in the 120s. Temperature 99.4, 96% on room air. Cardiogram showed an ejection fraction of 25-30% with mid inferior septal, apical anterior, apical inferior and apical septal hypokinesis. Upon examination , patient's heart rate is noted to be in the 90s. Resting comfortably in bed and has no complaints of shortness of breath, chest discomfort, palpitations, dizziness or back pain. Objective - Vital Signs Vital signs: Vital Signs Temp 96.6 F L 12/08/16 04:00 Pulse 94 12/08/16 04:00 Resp 18 12/08/16 04:00 BP 131/67 12/08/16 04:00 Pulse Ox 94 L 12/08/16 04:00 Intake & Output 12/07/16 12/08/16 12/08/16 18:59 06:59 18:59 Intake Total 840 10 100 Output Total 300 350 Balance 540 10 -250 Weight 52.4 kg 53.8 kg Intake: IV 10 FLUSH 10 Oral 840 100 Output: Urine 300 350 Other: Voiding Method Bedside Commode Bedside Commode # Voids 1 1 # Bowel Movements 0 - Exam PHYSICAL EXAMINATION: HEENT: Head is atraumatic, normocephalic. Pupils equal, round. Neck is supple. There is no elevated jugular venous pressure. HEART EXAMINATION: Heart S1, S2, regular . No murmur or gallop heard. CHEST EXAMINATION: Lungs are clear to auscultation and precussion. No chest wall tenderness is noted on palpation or with deep breathing. ABDOMEN: Soft, nontender. Bowel sounds are heard. No organomegaly noted. EXTREMITIES: 2+ peripheral pulses with no evidence of peripheral edema and no calf tenderness noted. NEUROLOGIC patient is awake, alert and oriented x3. - Labs CBC & Chem 7: 12/07/16 09:14 12/07/16 09:14 Assessment and Plan Plan: Assessment and plan #1 mid to upper back pain CTA chest negative for pulmonary embolism. There is evidence of mild anterior wedging of T7 and T8 which appears to be new from 2012. #2 sinus tachycardia with left bundle branch block pattern, patient was noted to have a left bundle-branch block back in 2013 as well. #3 hypertension #4 hyperlipidemia #5 chronic back pain #6 cardiomyopathy On cardiology's perspective, medications were reviewed and will continue the same at this time. We will continue to adjust medications and a outpatient basis. We will reassess ejection fraction as an outpatient. Discussed with the patient possible need for biventricular device, which will be determined at a date later date. She'll follow-up in the office with Dr. Orellana. [employer] note has been reviewed, I agree with a documented findings and plan of care. Patient was seen and examined.
[2016-12-08 15:49] VITALS: TEMP 96.9
[2016-12-08 15:51] VITALS: BP 141/80; PULSE 99
== END 2016-12-08 15:56 | disposition home or self-care (01) ==
LOC: EC 11:59 → INTOOBSV 15:09 → 6SEL 15:09
PROVIDERS: ADMIT Internal Medicine; ATTEND Internal Medicine
DX: R00.0 Tachycardia, unspecified (principal); I42.9 Cardiomyopathy, unspecified; M48.54XA Collapsed vertebra, not elsewhere classified, thoracic region, initial encounter for fracture; G89.29 Other chronic pain; I10 Essential (primary) hypertension; E78.2 Mixed hyperlipidemia; Z79.899 Other long term (current) drug therapy; Z88.5 Allergy status to narcotic agent; K21.9 Gastro-esophageal reflux disease without esophagitis; K57.90 Diverticulosis of intestine, part unspecified, without perforation or abscess without bleeding; F41.9 Anxiety disorder, unspecified; F32.9 Major depressive disorder, single episode, unspecified; I44.7 Left bundle-branch block, unspecified; R91.1 Solitary pulmonary nodule; Z99.3 Dependence on wheelchair
CPT/HCPCS: 36415; 71020; 71275; 80048; 80053; 81003; 82550; 82553; 83735; 84439; 84443; 84484; 85025; 85027; 85610; 85730; 93005; 93306; 96361; 96374; 96375; 96376; 99285

== ENCOUNTER 2016-12-20 12:17 | Inpatient (IN) | payer MEDICARE, BC ==
--- NOTE | 2016-12-20 13:22 | CT ---
EXAMINATION TYPE: CT brain lacey wiggins DATE OF EXAM: 12/20/2016 COMPARISON: 05/30/2014 HISTORY: Fall, loss of balance CT DLP: [address] of the brain was performed. The ventricles, basal cisterns and sulci overlying the cerebral convexities demonstrate mild enlargem ent. There is no evidence for intracranial hemorrhage or sulcal effacement. There is decreased attenuatio n about the periventricular white matter and deep white matter of both cerebral hemispheres, compatib le with chronic small vessel ischemia. No mass effects are seen. If symptoms persist consider MRI. Osseous calvarium is intact. IMPRESSION: 1. Age related atrophic and chronic small vessel ischemic change without acute intracranial process seen at this time. CT Cervical Spine: Unenhanced CT of the cervical spine was performed with bone and soft tissue window settings submitted . Coronal and sagittal reconstruction is obtained. There is normal alignment and prevertebral soft tissues. No evidence for acute cervical fracture . Severe Scattered degenerative disc disease and spondylosis. Biapical scarring. IMPRESSION: 1. No evidence for acute fracture or subluxation of the cervical spine.
[2016-12-20] MEDS ORDERED: MORPHINE SULFATE 4 MG/ML SYRINGE IV STA (13:25)
[2016-12-20] MEDS ORDERED: SODIUM CHLORIDE 0.9% 500 ML IV STA (13:25)
[2016-12-20] MEDS ORDERED: SODIUM CHLORIDE 0.9% 1,000 ML IV STA (13:25)
--- NOTE | 2016-12-20 13:25 | XR ---
EXAMINATION TYPE: XR chest 1V DATE OF EXAM: 12/20/2016 HISTORY: Shortness of breath. COMPARISON: 12/06/16 TECHNIQUE: Single view of the chest is submitted. Examination is limited by patient rotation. FINDINGS: Demonstrated are scattered senescent parenchymal change. There is no evidence for focal infiltrate. The heart is stable. Prominence of the aortic arch likely related to rotation. Degenerative changes are seen of the dorsal spine. IMPRESSION: 1. Chronic changes without evidence for acute pulmonary disease.
--- NOTE | 2016-12-20 13:26 | XR ---
EXAMINATION TYPE: XR Hip LT and AP Pelvis DATE OF EXAM: 12/20/2016 CLINICAL HISTORY: Pelvic and left hip pain. TECHNIQUE: A single AP view of the pelvis is obtained. Two views of the left hip are obtained. COMPARISON: None. FINDINGS: A partially impacted left femoral fracture. No additional fractures identified. Degenerative changes . IMPRESSION: partially impacted left femoral fracture
--- NOTE | 2016-12-20 14:22 | ED ---
General Adult HPI - General Chief complaint: Fall Stated complaint: Fall/knee & hip pain Time Seen by Provider: 12/20/16 12:23 Source: EMS, RN notes reviewed, old records reviewed Mode of arrival: EMS Limitations: no limitations - History of Present Illness Initial comments: This is a 86-year-old female here for evaluation. Patient is safe evaluation regarding leg pain and right hip pain. Patient is also status post fall. No syncopal episode secondary to fall. Patient's been eating and drinking less secondary to recent passing of her . Patient [place] of right hip pain. Unable to ambulate. Denies hitting her head or any other loss of consciousness. No chest pain headache shortness of breath or bowel pain prior to fall - Related Data Home Medications Medication Instructions Recorded Confirmed clonazePAM [KlonoPIN] 0.5 mg PO BID PRN 09/06/13 12/20/16 fluvoxaMINE [Luvox] 100 mg PO TID 09/06/13 12/20/16 lamoTRIgine [LaMICtal] 200 mg PO TID 09/06/13 12/20/16 Multivitamins, Thera [Multivitamin 1 tab PO DAILY 12/06/16 12/20/16 (formulary)] amLODIPine [Norvasc] 5 mg PO DAILY 12/20/16 12/20/16 Previous Rx's Medication Instructions Recorded Lisinopril [Zestril] 5 mg PO DAILY #30 tab 12/08/16 Metoprolol Tartrate 25 mg PO BID #60 tab 12/08/16 Spironolactone [Aldactone] 25 mg PO DAILY #30 tablet 12/08/16 Allergies Allergy/AdvReac Type Severity Reaction Status Date / Time codeine AdvReac Nausea & Verified 12/06/16 13:04 Vomiting Review of Systems ROS Statement: Those systems with pertinent positive or pertinent negative responses have been documented in the HPI. ROS Other: All systems not noted in ROS Statement are negative. Past Medical History Past Medical History: Atrial Fibrillation, GERD/Reflux, Hyperlipidemia, Hypertension Additional Past Medical History / Comment(s): Diverticulosis History of Any Multi-Drug Resistant Organisms: None Reported Past Surgical History: Appendectomy, Joint Replacement Additional Past Surgical History / Comment(s): Lt knee replacement x2 Past Psychological History: Anxiety, Bipolar, Depression Smoking Status: Never smoker Past Alcohol Use History: None Reported Past Drug Use History: None Reported General Exam - General Exam Comments Initial Comments: Right lower extremity shortened and rotated Limitations: no limitations General appearance: alert, in no apparent distress Head exam: Present: atraumatic, normocephalic, normal inspection Eye exam: Present: normal appearance, PERRL, EOMI. Absent: scleral icterus, conjunctival injection, periorbital swelling ENT exam: Present: normal exam, mucous membranes moist Neck exam: Present: normal inspection. Absent: tenderness, meningismus, lymphadenopathy Respiratory exam: Present: normal lung sounds bilaterally. Absent: respiratory distress, wheezes, rales, rhonchi, stridor Cardiovascular Exam: Present: regular rate, normal rhythm, normal heart sounds. Absent: systolic murmur, diastolic murmur, rubs, gallop, clicks GI/Abdominal exam: Present: soft, normal bowel sounds. Absent: distended, tenderness, guarding, rebound, rigid Extremities exam: Present: normal inspection, full ROM, normal capillary refill. Absent: tenderness, pedal edema, joint swelling, calf tenderness Back exam: Present: normal inspection Neurological exam: Present: alert, oriented X3, CN II-XII intact Psychiatric exam: Present: normal affect, normal mood Skin exam: Present: warm, dry, intact, normal color. Absent: rash Course Vital Signs 12/20/16 12/20/16 12:26 14:16 Temperature 98.3 F Pulse Rate 94 85 Respiratory 18 18 Rate Blood Pressure 143/82 130/56 O2 Sat by Pulse 86 L 96 Oximetry - Reevaluation(s) Reevaluation #1: 12/20/16 14:21 At this point patient's pain is well-controlled Medical Decision Making - Medical Decision Making 86 [facility] for evaluation for that. Patient presents to ER Evaluation status post fall. Follow-up right hip fracture. Patient will be admitted for orthopedic for positive hip fracture - Radiology Data Radiology results: report reviewed (CT brain and C-spine negative for acute disease, chest x-ray pelvis x-ray positive for right pelvic fracture), image reviewed Disposition Clinical Impression: Fall, Closed right hip fracture Disposition: ADMITTED IP TO THIS [facility] Condition: Fair Referrals: Adriana Perla MD [Primary Care Provider] - 1-2 days
[2016-12-20 14:26] LABS: Basophils # (A) 0.1 k/uL (0-0.2); Basophils % (A) 0 %; CH 31.3; CHCM 35.6; Eosinophils # (A) 0.1 k/uL (0-0.7); Eosinophils % (A) 0 %; HCT 38.8 % (34.0-46.0); HDW 2.17; HGB 13.8 gm/dL (11.4-16.0); Luc # (Auto) 0.12; Luc % (Auto) 1; Lymphocytes # (A) 1.1 k/uL (1.0-4.8); Lymphocytes % (A) 5 %; MCH 31.4 pg (25.0-35.0); MCHC 35.6 g/dL (31.0-37.0); Mean Platelet Volume 6.6; Monocytes % (A) 4 %; Neutrophils # (A) 21.6 k/uL (1.3-7.7); Neutrophils % (A) 90 %; RDW 12.7 % (11.5-15.5); WBC (Perox) 24.22
[2016-12-20 14:32] LABS: MCV 88.1 fL (80.0-100.0)
[2016-12-20 14:36] LABS: Partial Thromboplastin Time 25.6 sec (22.0-30.0); Prothrombin Time 10.6 sec (9.0-12.0)
[2016-12-20 14:39] LABS: ALT 64 U/L (9-52); AST 64 U/L (14-36); Alkaline Phosphatase 97 U/L (38-126); Anion Gap 11 mmol/L; Blood Urea Nitrogen 24 mg/dL (7-17); Calcium 9.3 mg/dL (8.4-10.2); Carbon Dioxide 22 mmol/L (22-30); Chloride 88 mmol/L (98-107); Glucose 101 mg/dL (74-99); Magnesium 1.7 mg/dL (1.6-2.3); Non-African American GFR(MDRD) >60 (>60 ml/min/1.73 sqM); Phosphorous 4.6 mg/dL (2.5-4.5); Potassium 4.3 mmol/L (3.5-5.1); Sodium 121 mmol/L (137-145); Total Bilirubin 0.8 mg/dL (0.2-1.3); Total Protein 6.3 g/dL (6.3-8.2)
[2016-12-20 14:45] LABS: Creatine Kinase 612 U/L (30-135)
[2016-12-20 14:57] LABS: Troponin I <0.012 ng/mL (0.000-0.034)
[2016-12-20 15:04] LABS: Creatine Kinase MB 23.2 ng/mL (0.0-2.4)
[2016-12-20] MEDS ORDERED: MORPHINE SULFATE 4 MG/ML SYRINGE IVP STA (15:16)
[2016-12-20] MEDS ORDERED: SODIUM CHLORIDE 0.9% 1,000 ML IV ONE (15:40)
[2016-12-20] MEDS ORDERED: ONDANSETRON 4 MG/2 ML VIAL IVP PRN (15:41)
--- NOTE | 2016-12-20 16:37 | P.HPOR ---
History of Present Illness H&P Date: 12/20/16 Chief Complaint: Left femoral neck fracture This is an 86-year-old female who was seen and evaluated today [facility]. She was brought to the hospital after sustaining a fall. Patient states that she was trying to turn on the air-conditioning in her home, when she fell over to the left side. She was unable to put any weight on that leg and had immediate pain. Upon arrival to the hospital, imaging and lab tests were done. Images demonstrated a left femoral neck fracture. I was contacted by the emergency room staff, and discussed the case. I was able to review the images of my attending Dr. Gross. Patient was then admitted under our care with plan for surgical intervention. Internal medicine was also consulted for medical clearance is for surgery. Patient states that she's had a few falls over the last few years but nothing significant. She has a history of bilateral total knee replacement, one was done in [place] the other one was done in [place]. She's had no acute problems regarding those. Patient denies any upper extremity pain, right lower extremity pain, cervical, thoracic or lumbar pain. Review of Systems Constitutional: Reports as per HPI Past Medical History Past Medical History: Atrial Fibrillation, GERD/Reflux, Hyperlipidemia, Hypertension Additional Past Medical History / Comment(s): Diverticulosis History of Any Multi-Drug Resistant Organisms: None Reported Past Surgical History: Appendectomy, Joint Replacement Additional Past Surgical History / Comment(s): Lt knee replacement x2 Past Psychological History: Anxiety, Bipolar, Depression Smoking Status: Never smoker Past Alcohol Use History: None Reported Past Drug Use History: None Reported Medications and Allergies Home Medications Medication Instructions Recorded Confirmed Type clonazePAM [KlonoPIN] 0.5 mg PO BID PRN 09/06/13 12/20/16 History fluvoxaMINE [Luvox] 100 mg PO TID 09/06/13 12/20/16 History lamoTRIgine [LaMICtal] 200 mg PO TID 09/06/13 12/20/16 History Multivitamins, Thera [Multivitamin 1 tab PO DAILY 12/06/16 12/20/16 History (formulary)] amLODIPine [Norvasc] 5 mg PO DAILY 12/20/16 12/20/16 History Allergies Allergy/AdvReac Type Severity Reaction Status Date / Time codeine AdvReac Nausea & Verified 12/06/16 13:04 Vomiting Physical Examination Left lower extremity: No obvious open lesions or sores present No obvious soft tissue swelling or ecchymosis Obvious shortening of the extremity is noted Patient is unable to straight leg raise, logroll maneuver reproduces pain in the groin No significant tenderness with palpation surrounding the knee, foot and ankle Sensory exam to light touch throughout the extremity is intact, Soft, no tenderness with palpation Plantar flexion, dorsiflexion, EHL, FHL are intact Dorsal pedis pulses 2+ Results - Labs Labs: Abnormal Lab Results - Last 24 Hours (Table) 12/20/16 12/20/16 12/20/16 Range/Units 14:08 14:08 14:08 WBC 24.0 H (3.8-10.6) k/uL Plt Count 510 H (150-450) k/uL Neutrophils # 21.6 H (1.3-7.7) k/uL Sodium 121 L (137-145) mmol/L Chloride 88 L (98-107) mmol/L BUN 24 H (7-17) mg/dL Glucose 101 H (74-99) mg/dL Phosphorus 4.6 H (2.5-4.5) mg/dL AST 64 H (14-36) U/L ALT 64 H (9-52) U/L Total Creatine Kinase 612 H (30-135) U/L CK-MB (CK-2) 23.2 H* (0.0-2.4) ng/mL H & H 12/20/16 Range/Units 14:08 Hgb 13.8 (11.4-16.0) gm/dL Hct 38.8 (34.0-46.0) % Coagulation 12/20/16 Range/Units 14:08 INR 1.0 (<1.2) Result Diagrams: 12/20/16 14:08 12/20/16 14:08 - Diagnostic results Hip x-ray: report reviewed, image reviewed Assessment and Plan Plan: Imaging: Multiple views of the left hip and pelvis were obtained. Images do demonstrate a left femoral neck fracture. The remaining aspect of the hip joint remains intact Assessment: 1. Left femoral neck fracture 2. Status post fall from standing 3. Other medical comorbidities Plan: 1. I was able to discuss the case with Dr. Gross, including both physical exam findings and imaging studies. We would like to proceed with surgical intervention, more specifically a hemiarthroplasty involving the left hip. Due to the patient's current laboratory values, they will need to be further workup and treatment before surgical intervention. Our plan is to do surgery on 2016 pending improvement in her labs.. 2. Nonweightbearing left hip 3. Medical clearance 4. GI and DVT prophylaxis, continue Lovenox 5. Pain control 6. Further recommendations to follow Time with Patient: Less than 30
[2016-12-20] MEDS ORDERED: ACETAMINOPHEN TAB 325 MG TAB PO PRN (16:56)
[2016-12-20] MEDS: traMADol 50 MG TAB PO SCH ×2 (17:10→21:50)
[2016-12-20] MEDS: MORPHINE SULFATE 4 MG/ML SYRINGE IVP PRN ×2 (18:36→21:50)
[2016-12-20 19:14] LABS: Appearance,Urine Clear (Clear); Bilirubin,Urine Negative (Negative); Glucose,Urine (UA) Negative (Negative); Ketones,Urine 1+ (Negative); Leukocyte Esterase,Urine Negative (Negative); Nitrite,Urine Negative (Negative); PH, Urine 6.5 (5.0-8.0); Protein,Urine Negative (Negative); Specific Gravity,Urine 1.009 (1.001-1.035); UA Billing (MACRO vs. MICRO) CHEM; Urobilinogen,Urine <2.0 mg/dL (<2.0)
[2016-12-20] MEDS: METOPROLOL TARTRATE 25 MG TAB PO SCH (20:06)
[2016-12-20] MEDS: lamoTRIgine 100 MG TAB PO SCH (20:06)
[2016-12-21] MEDS: LISINOPRIL 5 MG TAB PO SCH (08:24)
[2016-12-21] MEDS: SPIRONOLACTONE 25 MG TAB PO SCH (08:24)
[2016-12-21] MEDS: METOPROLOL TARTRATE 25 MG TAB PO SCH ×2 (08:25→20:07)
[2016-12-21] MEDS: lamoTRIgine 100 MG TAB PO SCH ×3 (08:25→21:40)
[2016-12-21] MEDS: traMADol 50 MG TAB PO SCH ×4 (08:25→21:41)
[2016-12-21] MEDS ORDERED: amLODIPine 5 MG TAB PO SCH (09:00)
[2016-12-21] MEDS ORDERED: ENOXAPARIN 40 MG/0.4 ML SYRINGE SQ SCH (09:00)
[2016-12-21 10:38] LABS: Basophils % (A) 0 %; CH 31.6; CHCM 33.5; Eosinophils # (A) 0.1 k/uL (0-0.7); Eosinophils % (A) 1 %; HDW 2.19; HGB 12.5 gm/dL (11.4-16.0); Luc # (Auto) 0.13; Luc % (Auto) 1; Lymphocytes # (A) 0.9 k/uL (1.0-4.8); Lymphocytes % (A) 6 %; MCH 31.2 pg (25.0-35.0); MCHC 32.8 g/dL (31.0-37.0); Mean Platelet Volume 7.1; Monocytes # (A) 0.7 k/uL (0-1.0); Monocytes % (A) 5 %; Neutrophils # (A) 13.7 k/uL (1.3-7.7); Neutrophils % (A) 88 %; RBC 4.01 m/uL (3.80-5.40); RDW 13.5 % (11.5-15.5); WBC 15.5 k/uL (3.8-10.6); WBC (Perox) 15.13
[2016-12-21 10:47] LABS: MCV 94.9 fL (80.0-100.0)
[2016-12-21 10:52] LABS: ALT 51 U/L (9-52); AST 46 U/L (14-36); Alkaline Phosphatase 82 U/L (38-126); Anion Gap 7 mmol/L; Blood Urea Nitrogen 18 mg/dL (7-17); Calcium 8.3 mg/dL (8.4-10.2); Carbon Dioxide 23 mmol/L (22-30); Chloride 94 mmol/L (98-107); Glucose 70 mg/dL (74-99); Non-African American GFR(MDRD) >60 (>60 ml/min/1.73 sqM); Sodium 124 mmol/L (137-145); Total Bilirubin 0.8 mg/dL (0.2-1.3); Total Protein 5.2 g/dL (6.3-8.2)
[2016-12-21 11:26] VITALS: BMI 22.6
[2016-12-21] MEDS: MULTIVITAMINS, THERA 1 EACH TAB PO SCH (11:26)
[2016-12-21] MEDS ORDERED: LACTATED RINGERS 1,000 ML IV ONE ×3 (12:36→14:37)
[2016-12-21] MEDS ORDERED: ceFAZolin 2 GM in SODIUM CHLORIDE 0.9% 100 ML IVPB STA (12:43)
--- NOTE | 2016-12-21 12:50 | P.CRDCN ---
History of Present Illness Consult date: 12/21/16 Consult reason: pre-op evaluation History of present illness: This is a 86-year-old female. Past medical history significant for nonischemic cardiomyopathy, systolic dysfunction, hypertension, hyperlipidemia and chronic back pain. Patient presents with complaints of fall at home. She states she stood up from her chair to walk over to thermostat to adjust air- conditioning and she got dizzy and fell. She denies loss of consciousness, denies loss of bowel or bladder function. She denies chest pain, shortness of breath, palpitations or nausea/vomiting. She was found to have a partially impacted left femoral fracture. We have been consulted prior to surgical intervention for cardiac recommendation. Upon examination patient is seen resting in bed comfortably in no acute distress family the bedside. She is wearing oxygen 3 L nasal cannula. Per the staff the patient was attempted room air and had a saturation of 85%. This is new for the patient to require oxygen. EKG done shows sinus mechanism with a left bundle-branch block. When compared with old EKG this appears consistent. Chest x-ray showed no evidence of congestive heart failure. ProBNP 1190. She does not appear to be in acute heart failure at this time. Most recent echo dated 12/07/2016 indicates ejection fraction 25-30% with mid inferior septal, apical anterior, apical inferior and apical septal hypokinesis. Review of Systems REVIEW OF SYSTEMS: Patient denies any chest discomfort. No shortness of breath. No diaphoresis. Denies headache, blurred vision, double vision. No dyspnea on exertion. Patient denies any stomach discomfort. No nausea, vomiting. No hematochezia. No hematemesis. Denies any black stools or blood in his stools. No syncope. No palpitations. No cough. No recent fever or chills. No muscle weakness or numbness. Past Medical History Past Medical History: GERD/Reflux, Hyperlipidemia, Hypertension Additional Past Medical History / Comment(s): Diverticulosis History of Any Multi-Drug Resistant Organisms: None Reported Past Surgical History: Appendectomy, Joint Replacement Additional Past Surgical History / Comment(s): Lt knee replacement x2 Past Anesthesia/Blood Transfusion Reactions: No Reported Reaction Additional Past Anesthesia/Blood Transfusion Reaction / Comment(s): CLAUSTERPHOBIC Smoking Status: Never smoker - Past Family History Mother Family Medical History: CVA/TIA, Hypertension Father Family Medical History: Cancer, Hypertension Additional Family Medical History / Comment(s): KIDNEY CANCER Medications and Allergies Home Medications Medication Instructions Recorded Confirmed Type clonazePAM [KlonoPIN] 0.5 mg PO BID PRN 09/06/13 12/20/16 History fluvoxaMINE [Luvox] 100 mg PO TID 09/06/13 12/20/16 History lamoTRIgine [LaMICtal] 200 mg PO TID 09/06/13 12/20/16 History Multivitamins, Thera [Multivitamin 1 tab PO DAILY 12/06/16 12/20/16 History (formulary)] amLODIPine [Norvasc] 5 mg PO DAILY 12/20/16 12/20/16 History Allergies Allergy/AdvReac Type Severity Reaction Status Date / Time codeine AdvReac Nausea & Verified 12/06/16 13:04 Vomiting Physical Exam Vitals: Vital Signs Temp Pulse Pulse Resp BP BP Pulse Ox 12/21/16 10:38 94 L 12/21/16 07:00 97.9 F 103 H 16 107/56 96 12/21/16 02:00 96.9 F L 86 16 92/54 91 L 12/20/16 20:00 98.1 F 95 16 123/72 94 L 12/20/16 16:45 98.2 F 98 18 131/72 94 L 12/20/16 16:26 97.6 F 76 18 147/68 98 12/20/16 14:16 85 18 130/56 96 Intake and Output 12/20/16 12/21/16 12/21/16 22:59 06:59 14:59 Intake Total 600 Output Total 800 Balance 600 -800 Intake: Intake, IV Titration 250 Amount Sodium Chloride 0.9% 1, 250 000 ml @ 100 mls/hr IV . Q10H ONE Rx#:[id number] Oral 350 Output: Urine 800 Other: Voiding Method Indwelling Catheter Indwelling Catheter Weight 52.617 kg Patient Weight 12/22/16 06:59 Weight 52.617 kg GENERAL: This is a 86-year-old female in no apparent distress at the time of my examination. Patient is hard of hearing. HEENT: Head is atraumatic, normocephalic. Pupils are equal, round. Sclerae anicteric. Conjunctivae are clear. Right eyelid chronically remains closed. Mucous membranes of the mouth are moist. Neck is supple. There is no jugular venous distention. No carotid bruit is heard. LUNGS: Clear to auscultation no wheezes, rales or rhonchi. No chest wall tenderness is noted on palpation or with deep breathing. HEART: Regular rate and rhythm without murmurs, rubs or gallops. S1 and S2 heard. ABDOMEN: Soft, nontender. Bowel sounds are heard. No organomegaly noted. EXTREMITIES: 2+ peripheral pulses with no evidence of peripheral edema and no calf tenderness noted. Left leg shortened and externally rotated. NEUROLOGIC: Patient is awake, alert and oriented x3. Results 12/21/16 10:10 12/21/16 10:10 Cardiac Enzymes 12/20/16 12/20/16 12/21/16 Range/Units 14:08 14:08 10:10 AST 64 H 46 H (14-36) U/L CK-MB (CK-2) 23.2 H* (0.0-2.4) ng/mL Troponin I <0.012 (0.000-0.034) ng/mL Coagulation 12/20/16 Range/Units 14:08 PT 10.6 (9.0-12.0) sec APTT 25.6 (22.0-30.0) sec CBC 12/20/16 12/21/16 Range/Units 14:08 10:10 WBC 24.0 H 15.5 H (3.8-10.6) k/uL RBC 4.40 4.01 (3.80-5.40) m/uL Hgb 13.8 12.5 (11.4-16.0) gm/dL Hct 38.8 38.0 (34.0-46.0) % Plt Count 510 H 446 (150-450) k/uL Comprehensive Metabolic Panel 12/20/16 12/21/16 Range/Units 14:08 10:10 Sodium 121 L 124 L (137-145) mmol/L Potassium 4.3 4.0 (3.5-5.1) mmol/L Chloride 88 L 94 L (98-107) mmol/L Carbon Dioxide 22 23 (22-30) mmol/L BUN 24 H 18 H (7-17) mg/dL Creatinine 0.80 0.77 (0.52-1.04) mg/dL Glucose 101 H 70 L (74-99) mg/dL Calcium 9.3 8.3 L (8.4-10.2) mg/dL AST 64 H 46 H (14-36) U/L ALT 64 H 51 (9-52) U/L Alkaline Phosphatase 97 82 (38-126) U/L Total Protein 6.3 5.2 L (6.3-8.2) g/dL Albumin 4.1 3.1 L (3.5-5.0) g/dL Current Medications Generic Name Dose Route Start Last Admin Trade Name Freq PRN Reason Stop Dose Admin Acetaminophen 650 mg 12/20/16 16:56 12/20/16 20:05 Tylenol Tab PO 650 mg Q6HR PRN Administration Fever and/ or Pain Clonazepam 0.5 mg 12/20/16 17:13 Klonopin PO BID PRN Anxiety Enoxaparin Sodium 40 mg 12/21/16 09:00 12/21/16 08:24 Lovenox SQ Not Given DAILY [facility] Fluvoxamine Maleate 100 mg 12/20/16 22:00 12/21/16 08:25 Luvox PO 100 mg TID NGHIA Administration Lamotrigine 200 mg 12/20/16 22:00 12/21/16 08:25 Lamictal PO 200 mg TID NGHIA Administration Lisinopril 5 mg 12/21/16 09:00 12/21/16 08:24 Zestril PO Not Given DAILY [facility] Metoprolol Tartrate 25 mg 12/20/16 21:00 12/21/16 08:25 Lopressor PO 25 mg BID NGHIA Administration Morphine Sulfate 4 mg 12/20/16 15:41 12/20/16 21:50 Morphine Sulfate (Inj) IVP 4 mg Q4HR PRN Administration Pain Multivitamins 1 each 12/21/16 12:00 12/21/16 11:26 Theragran PO Not Given 1200 NGHIA Ondansetron HCl 4 mg 12/20/16 15:41 Zofran IVP Q6HR PRN Nausea And Vomiting Spironolactone 25 mg 12/21/16 09:00 12/21/16 08:24 Aldactone PO Not Given DAILY NGHIA Tramadol HCl 50 mg 12/20/16 18:00 12/21/16 12:16 Ultram PO Not Given QID NGHIA Intake and Output 12/20/16 12/21/16 12/21/16 22:59 06:59 14:59 Intake Total 600 Output Total 800 Balance 600 -800 Intake: Intake, IV Titration 250 Amount Sodium Chloride 0.9% 1, 250 000 ml @ 100 mls/hr IV . Q10H ONE Rx#:[id number] Oral 350 Output: Urine 800 Other: Voiding Method Indwelling Catheter Indwelling Catheter Weight 52.617 kg Patient Weight 12/22/16 06:59 Weight 52.617 kg 12/21/16 10:10 12/21/16 10:10 - EKG Interpretation EKG: not changed from: EKG Interpretations (text) EKG shows a sinus mechanism with a left bundle branch block. This is consistent with EKG performed 12/06/2016. Assessment and Plan Plan: ASSESSMENT 1. Nonischemic cardiomyopathy 2. Systolic heart failure, ejection fraction 25-30% 3. Chronic left bundle branch block 4. Left femoral neck fracture 5. History of essential hypertension 6. Hyperlipidemia PLAN Due to the comorbid conditions she is a high risk for surgical intervention. However there is no absolute contraindications for going for surgery this afternoon. Under the circumstances it is more beneficial to the patient to get back to baseline level of functioning and ambulation. Recommend very cautious fluid administration and optimal blood pressure control. Norvasc should be discontinued in light of ejection fraction of 25%. BNP is within normal limits. The patient does not appear to be an acute heart failure at this time. We will continue to follow this patient closely. Thank you for this consultation. Nurse Practitioner note has been reviewed, I agree with a documented findings and plan of care. Patient was seen and examined.
[2016-12-21] MEDS ORDERED: MIDAZOLAM 2 MG/2 ML VIAL ONE (13:04)
[2016-12-21] MEDS ORDERED: KETAMINE 10 MG/ML 20 ML VIAL ONE (13:04)
--- NOTE | 2016-12-21 13:24 | P.CONS ---
History of Present Illness - Reason for Consult Consult date: 12/21/16 Medical management Requesting physician: Luke Gross - Chief Complaint Left hip fracture - History of Present Illness This is a 86-year-old female, patient of Dr. Turcios. Patient has a known past medical history of cardiomyopathy with EF 20%, hypertension, hyperlipidemia, anxiety, depression and bipolar. She presents to the emergency room after a fall. She reports she was sitting on her couch and got up to change the thermometer for her air conditioner and he felt a little dizzy and fell to the ground landing on her left hip. She was unable to get up and was starting to have pain and was brought into the emergency room for further evaluation and treatment. We are consulted for medical management. She had a computed tomography scan of the head and spine which were negative chest x-ray negative. EKG showed a left bundle branch block. X-ray of the hip that showed a partially impacted left femoral fracture. She was admitted to the orthopedic service and is scheduled for surgery this afternoon. We consulted cardiology for further cardiac clearance. Patient was found to have a low oxygen saturation requiring 3 L of oxygen to be placed. BNP level [id number] which is within the normal range. Chest x-ray showed no sitting up. Signs of congestive heart failure. But due to patient's cardiomyopathy and low EF she required cardiac clearance. Cardiology did clear her for surgery even though she was considered high risk. Her white count on admission was 24 has gone down to 15.5 she also had evidence of hyponatremia sodium of 121 which is showing improvement with fluids at 124. Patient denies any chest pain or shortness of breath. Denies any nausea or vomiting. Denies any bowel movement changes or urinary symptoms. Denies any fevers chills or sweats. Review of Systems Please refer to HPI otherwise unremarkable Past Medical History Past Medical History: GERD/Reflux, Hyperlipidemia, Hypertension Additional Past Medical History / Comment(s): Diverticulosis History of Any Multi-Drug Resistant Organisms: None Reported Past Surgical History: Appendectomy, Joint Replacement Additional Past Surgical History / Comment(s): Lt knee replacement x2 Past Anesthesia/Blood Transfusion Reactions: No Reported Reaction Additional Past Anesthesia/Blood Transfusion Reaction / Comm: CLAUSTERPHOBIC Smoking Status: Never smoker - Past Family History Mother Family Medical History: CVA/TIA, Hypertension Father Family Medical History: Cancer, Hypertension Additional Family Medical History / Comment(s): KIDNEY CANCER Medications and Allergies Home Medications Medication Instructions Recorded Confirmed Type clonazePAM [KlonoPIN] 0.5 mg PO BID PRN 09/06/13 12/20/16 History fluvoxaMINE [Luvox] 100 mg PO TID 09/06/13 12/20/16 History lamoTRIgine [LaMICtal] 200 mg PO TID 09/06/13 12/20/16 History Multivitamins, Thera [Multivitamin 1 tab PO DAILY 12/06/16 12/20/16 History (formulary)] amLODIPine [Norvasc] 5 mg PO DAILY 12/20/16 12/20/16 History Allergies Allergy/AdvReac Type Severity Reaction Status Date / Time codeine AdvReac Nausea & Verified 12/21/16 12:41 Vomiting Physical Exam Vitals: Vital Signs Temp Pulse Pulse Resp BP BP Pulse Ox 12/21/16 12:38 98.4 F 102 H 16 133/68 97 12/21/16 10:38 94 L 12/21/16 07:00 97.9 F 103 H 16 107/56 96 12/21/16 02:00 96.9 F L 86 16 92/54 91 L 12/20/16 20:00 98.1 F 95 16 123/72 94 L 12/20/16 16:45 98.2 F 98 18 131/72 94 L 12/20/16 16:26 97.6 F 76 18 147/68 98 12/20/16 14:16 85 18 130/56 96 Intake and Output 12/20/16 12/21/16 12/21/16 22:59 06:59 14:59 Intake Total 600 50 Output Total 800 300 Balance 600 -800 -250 Intake: IV 50 Intake, IV Titration 250 Amount Sodium Chloride 0.9% 1, 250 000 ml @ 100 mls/hr IV . Q10H ONE Rx#:[id number] Oral 350 Output: Urine 800 300 Uretheral (Wynn) 300 Other: Voiding Method Indwelling Catheter Indwelling Catheter Weight 52.617 kg Patient Weight 12/22/16 06:59 Weight 52.617 kg Head normocephalic Neck supple Lungs clear to auscultation bilaterally no wheezing or crackles Heart regular rate and rhythm S1-S2, no rub or gallop Abdomen is soft nontender nondistended positive bowel sounds no hepatosplenomegaly Extremities no edema Neuro alert and orientated to 3 Results CBC & Chem 7: 12/21/16 10:10 12/21/16 10:10 Labs: Abnormal Lab Results - Last 24 Hours (Table) 12/20/16 12/20/16 12/20/16 Range/Units 14:08 14:08 14:08 WBC 24.0 H (3.8-10.6) k/uL Plt Count 510 H (150-450) k/uL Neutrophils # 21.6 H (1.3-7.7) k/uL Lymphocytes # (1.0-4.8) k/uL Sodium 121 L (137-145) mmol/L Chloride 88 L (98-107) mmol/L BUN 24 H (7-17) mg/dL Glucose 101 H (74-99) mg/dL Calcium (8.4-10.2) mg/dL Phosphorus 4.6 H (2.5-4.5) mg/dL AST 64 H (14-36) U/L ALT 64 H (9-52) U/L Total Creatine Kinase 612 H (30-135) U/L CK-MB (CK-2) 23.2 H* (0.0-2.4) ng/mL Total Protein (6.3-8.2) g/dL Albumin (3.5-5.0) g/dL Urine Ketones (Negative) 12/20/16 12/21/16 12/21/16 Range/Units 19:00 10:10 10:10 WBC 15.5 H (3.8-10.6) k/uL Plt Count (150-450) k/uL Neutrophils # 13.7 H (1.3-7.7) k/uL Lymphocytes # 0.9 L (1.0-4.8) k/uL Sodium 124 L (137-145) mmol/L Chloride 94 L (98-107) mmol/L BUN 18 H (7-17) mg/dL Glucose 70 L (74-99) mg/dL Calcium 8.3 L (8.4-10.2) mg/dL Phosphorus (2.5-4.5) mg/dL AST 46 H (14-36) U/L ALT (9-52) U/L Total Creatine Kinase (30-135) U/L CK-MB (CK-2) (0.0-2.4) ng/mL Total Protein 5.2 L (6.3-8.2) g/dL Albumin 3.1 L (3.5-5.0) g/dL Urine Ketones 1+ H (Negative) Microbiology - Last 24 Hours (Table) 12/20/16 19:00 Urine Culture - Preliminary Urine,Clean Catch Assessment and Plan Plan: 1. Left femoral neck fracture: Patient scheduled for surgery today. Patient is high risk for surgery. Cardiology has cleared her to proceed with surgery. Medically she is then stable to proceed with surgery. EKG shows a left bundle branch block. Chest x-ray was negative. Troponin negative and BNP within normal range. 2. Nonischemic cardiomyopathy 3. History of chronic systolic congestive heart failure with no evidence of exacerbation. EF of 25-30%. Cardiology did discontinue the Norvasc 4. Chronic left bundle branch block 5. Essential hypertension continue lisinopril and Aldactone 6. Hyperlipidemia 7. Bipolar 8. Hyponatremia showing improvement with IV fluids. Repeat labs in a.m. 9. Leukocytosis possibly reactive from fracture. White count has decreased from 24-15.5. no evidence of acute infection. UA negative. Repeat labs in a.m. 10. Decrease in oxygen saturation, patient requiring 3 L of oxygen. Chest x- ray negative. BNP within normal range. We will continue to monitor. Recommend incentive spirometer after surgery Thank you for this consultation. We will continue to follow along with you. Time with Patient: Greater than 30 (Greater than 50% of the total time spent in counseling and coordination of care.I performed an examination of the patient and discussed their management with the physician Meat Team Member. I have reviewed the Physician Meat Team Member's notes and agree with the documented findings and plan of care)
[2016-12-21] MEDS ORDERED: ceFAZolin 3,000 MG in SODIUM CHLORIDE 0.9% IRRIGATIO 3,000 ML IRRIGATION ONE (13:48)
[2016-12-21] MEDS ORDERED: HYDROcodone/APAP 5-325MG 1 EACH TAB PO PRN (14:16)
[2016-12-21] MEDS ORDERED: ONDANSETRON 4 MG/2 ML VIAL IVP PRN (14:16)
[2016-12-21] MEDS ORDERED: HYDROmorphone 1 MG/ML 1 ML SYRINGE IVP PRN ×2 (14:16)
--- NOTE | 2016-12-21 14:16 | P.OP ---
Date of Procedure: 12/21/16 Preoperative Diagnosis: Displaced left femoral neck fracture Postoperative Diagnosis: Same Procedure(s) Performed: Left hip hemiarthroplasty Implants: 1. Depuy Corail size 12 standard offset with collar press-fit femoral component 2. Depuy metallic femoral head 42 mm -3 Anesthesia: spinal Surgeon: Luke Gross Canary Breeder #1: William Corona Estimated Blood Loss (ml): 250 Pathology: other (Femoral head) Condition: stable Disposition: PACU Indications for Procedure: 86-year-old patient seen with a displaced left hip femoral neck fracture. After treatment options were discussed she agreed to proceed with left hip hemiarthroplasty. Consent was obtained. Operative Findings: see description of procedure Description of Procedure: Patient was taken to the operative suite. Patient underwent spinal anesthetic by the department anesthesia. Patient was placed in lateral position. Bony prominences were padded. Left hip was prepped and draped in the normal sterile orthopedic fashion. Patient received preoperative IV antibiotics. A posterior lateral incision was made sharply through skin. Dissection was taken down to the IT band. An incision was made through the IT band extending through the gluteal fascia. I dissected down to the short external rotators. They were tagged and incised. Anterior incision was made through the capsule. An obvious displaced femoral neck fracture present. The residual neck was removed. The femoral head was extracted. That was templated to a 42 mm. I began serial broaching up to a size 12 which had good overall rotational stability. Calcar planing was performed. A -342 mm endoprosthetic head was now introduced and the hip was reduced. We good range of motion good overall stability and leg lengths appeared to be within reasonable limits. The hip was now dislocated. All trial components removed. The wound was irrigated with pulse lavage mechanical irrigation. The appropriate size femoral implant was introduced without difficulty with good fixation noted. The appropriate size endoprosthetic femoral head was introduced and secured. The hip was now reduced. We good overall stability. The wound again was irrigated with pulse lavage mechanical irrigation. The hip capsule was repaired with #1 Vicryl. The short external rotators repair with #1 Vicryl. The IT band was repaired #1 Vicryl. The subcu soft tissues were approximated with Vicryl suture. The skin was approximated with pernio Dermabond. Sterile dressings were applied. The patient was awakened and transferred to a bed and recovery stable condition. Dariel ANAYA assisted procedure.
--- NOTE | 2016-12-21 15:14 | XR ---
EXAMINATION TYPE: XR Hip Limited LT DATE OF EXAM: 12/21/2016 COMPARISON: NONE HISTORY: 86 year-old female left hip hemiarthroplasty. TECHNIQUE: Single portable AP view FINDINGS: Image shows placement of left hip hemiarthroplasty. There may be mild axial narrowing of hip joint sp darci. Foci of gas about the hip relates to the recent operation. Alignment is grossly anatomic. No per iprosthetic fracture. IMPRESSION: Uncomplicated postoperative appearance left hip hemiarthroplasty.
[2016-12-21] MEDS: ceFAZolin 2 GM in SODIUM CHLORIDE 0.9% 100 ML IVPB SCH (16:47)
[2016-12-21] MEDS: SODIUM CHLORIDE 0.9% 1,000 ML IV SCH (16:47)
[2016-12-21 16:53] LABS: Basophils # (A) 0.1 k/uL (0-0.2); Basophils % (A) 0 %; CH 30.2; CHCM 31.6; Eosinophils # (A) 0.2 k/uL (0-0.7); Eosinophils % (A) 1 %; HCT 38.3 % (34.0-46.0); HDW 2.21; HGB 12.6 gm/dL (11.4-16.0); Luc % (Auto) 2; Lymphocytes # (A) 1.5 k/uL (1.0-4.8); Lymphocytes % (A) 8 %; MCH 31.7 pg (25.0-35.0); MCV 96.2 fL (80.0-100.0); Mean Platelet Volume 6.8; Monocytes # (A) 1.1 k/uL (0-1.0); Monocytes % (A) 6 %; Neutrophils # (A) 16.8 k/uL (1.3-7.7); Neutrophils % (A) 84 %; RBC 3.98 m/uL (3.80-5.40); WBC (Perox) 20.59
[2016-12-21] MEDS: SENNOSIDES-DOCUSATE SODIUM 1 EACH TAB PO SCH (21:39)
[2016-12-21] MEDS: HYDROcodone/APAP 5-325MG 1 EACH TAB PO PRN (21:41)
[2016-12-21] MEDS: clonazePAM 0.5 MG TAB PO PRN (21:41)
[2016-12-22] MEDS: SODIUM CHLORIDE 0.9% 1,000 ML IV SCH (03:51)
[2016-12-22 06:18] LABS: Basophils % (A) 0 %; CH 31.6; CHCM 33.4; Eosinophils # (A) 0.2 k/uL (0-0.7); Eosinophils % (A) 1 %; HCT 30.1 % (34.0-46.0); HDW 2.17; Luc # (Auto) 0.25; Luc % (Auto) 2; Lymphocytes # (A) 1.4 k/uL (1.0-4.8); Lymphocytes % (A) 12 %; MCH 31.5 pg (25.0-35.0); MCHC 33.1 g/dL (31.0-37.0); MCV 95.2 fL (80.0-100.0); Mean Platelet Volume 7.3; Monocytes % (A) 9 %; Neutrophils # (A) 8.5 k/uL (1.3-7.7); Neutrophils % (A) 75 %; RBC 3.16 m/uL (3.80-5.40); RDW 13.5 % (11.5-15.5); WBC 11.3 k/uL (3.8-10.6); WBC (Perox) 11.63
[2016-12-22] MEDS: ceFAZolin 2 GM in SODIUM CHLORIDE 0.9% 100 ML IVPB SCH (06:18)
[2016-12-22 06:24] LABS: HGB 9.9 gm/dL (11.4-16.0)
[2016-12-22 07:01] LABS: ALT 38 U/L (9-52); AST 41 U/L (14-36); Alkaline Phosphatase 64 U/L (38-126); Anion Gap 4 mmol/L; Blood Urea Nitrogen 17 mg/dL (7-17); Calcium 7.9 mg/dL (8.4-10.2); Carbon Dioxide 22 mmol/L (22-30); Chloride 98 mmol/L (98-107); Glucose 97 mg/dL (74-99); Non-African American GFR(MDRD) >60 (>60 ml/min/1.73 sqM); Potassium 4.5 mmol/L (3.5-5.1); Sodium 124 mmol/L (137-145); Total Bilirubin 0.5 mg/dL (0.2-1.3); Total Protein 4.4 g/dL (6.3-8.2)
[2016-12-22] MEDS: traMADol 50 MG TAB PO SCH ×4 (08:01→22:48)
[2016-12-22] MEDS: lamoTRIgine 100 MG TAB PO SCH ×3 (08:01→21:43)
[2016-12-22] MEDS: HYDROcodone/APAP 5-325MG 1 EACH TAB PO PRN ×2 (08:02→15:51)
[2016-12-22] MEDS: METOPROLOL TARTRATE 25 MG TAB PO SCH (08:02)
[2016-12-22] MEDS: ENOXAPARIN 40 MG/0.4 ML SYRINGE SQ SCH (08:02)
[2016-12-22] MEDS: LISINOPRIL 5 MG TAB PO SCH (08:02)
[2016-12-22] MEDS: SENNOSIDES-DOCUSATE SODIUM 1 EACH TAB PO SCH (08:02)
[2016-12-22] MEDS: SPIRONOLACTONE 25 MG TAB PO SCH (08:03)
[2016-12-22] MEDS ORDERED: FUROSEMIDE 10 MG/ML 2 ML VIAL IV STA (08:37)
[2016-12-22] MEDS: FERROUS SULFATE 325 MG TAB PO SCH ×2 (10:01→21:43)
[2016-12-22] MEDS: ATENOLOL 25 MG TAB PO SCH ×2 (10:01→22:02)
--- NOTE | 2016-12-22 10:24 | P.PN ---
Subjective Patient is status post left hip hemiarthroplasty for left femoral neck fracture. Estimated blood loss was 250 mL. Patient is sitting up in bedside chair. Full catheter still in place. Reports that her pain is controlled. Denies any chest pain or shortness of breath. Denies any nausea or vomiting. She reports her last bowel movement was about 3 days ago. Patient did receive 1 dose of IV Lasix yesterday by cardiology in the IV fluids were decreased to 50 mL an hour Objective - Vital Signs Vital signs: Vital Signs Temp 98.3 F 12/22/16 07:00 Pulse 92 12/22/16 07:00 Resp 12 12/22/16 07:00 BP 114/54 12/22/16 07:00 Pulse Ox 97 12/22/16 07:00 Intake & Output 12/21/16 12/22/16 12/22/16 18:59 06:59 18:59 Intake Total 1401 150 Output Total 600 Balance 801 150 Weight 52.617 kg Intake: IV 1401 Intake, IV Titration 150 Amount Sodium Chloride 0.9% 1, 150 000 ml @ 50 mls/hr IV . Q20H [facility] Rx#:[id number] Output: Urine 350 Uretheral (Wynn) 300 Estimated Blood Loss 250 Other: Voiding Method Indwelling Catheter Indwelling Catheter - Exam Head normocephalic Neck supple Lungs clear to auscultation bilaterally no wheezing or crackles Heart regular rate and rhythm S1-S2, no rub or gallop Abdomen is soft nontender nondistended positive bowel sounds no hepatosplenomegaly Extremities no edema Neuro alert and orientated to 3 - Labs CBC & Chem 7: 12/22/16 06:05 12/22/16 06:05 Labs: Abnormal Lab Results - Last 24 Hours (Table) 12/21/16 12/21/16 12/21/16 Range/Units 10:10 10:10 16:23 WBC 15.5 H 20.0 H (3.8-10.6) k/uL RBC (3.80-5.40) m/uL Hgb (11.4-16.0) gm/dL Hct (34.0-46.0) % Neutrophils # 13.7 H 16.8 H (1.3-7.7) k/uL Lymphocytes # 0.9 L (1.0-4.8) k/uL Monocytes # 1.1 H (0-1.0) k/uL Sodium 124 L (137-145) mmol/L Chloride 94 L (98-107) mmol/L BUN 18 H (7-17) mg/dL Glucose 70 L (74-99) mg/dL Calcium 8.3 L (8.4-10.2) mg/dL AST 46 H (14-36) U/L Total Protein 5.2 L (6.3-8.2) g/dL Albumin 3.1 L (3.5-5.0) g/dL 12/22/16 12/22/16 Range/Units 06:05 06:05 WBC 11.3 H (3.8-10.6) k/uL RBC 3.16 L (3.80-5.40) m/uL Hgb 9.9 L D (11.4-16.0) gm/dL Hct 30.1 L (34.0-46.0) % Neutrophils # 8.5 H (1.3-7.7) k/uL Lymphocytes # (1.0-4.8) k/uL Monocytes # (0-1.0) k/uL Sodium 124 L (137-145) mmol/L Chloride (98-107) mmol/L BUN (7-17) mg/dL Glucose (74-99) mg/dL Calcium 7.9 L (8.4-10.2) mg/dL AST 41 H (14-36) U/L Total Protein 4.4 L (6.3-8.2) g/dL Albumin 2.5 L (3.5-5.0) g/dL Microbiology - Last 24 Hours (Table) 12/20/16 19:00 Urine Culture - Final Urine,Clean Catch Assessment and Plan Plan: 1. Left femoral neck fracture: Postoperative day #1 status post left hip hemiarthroplasty. 2. Nonischemic cardiomyopathy 3. History of chronic systolic congestive heart failure with no evidence of exacerbation. EF of 25-30%. Cardiology did discontinue the Norvasc 4. Chronic left bundle branch block 5. Essential hypertension continue lisinopril and Aldactone 6. Hyperlipidemia 7. Bipolar 8. Hyponatremia showing improvement with IV fluids. Sodium is staying around 124. Continue to monitor 9. Leukocytosis possibly reactive from fracture. no evidence of acute infection. UA negative. Repeat labs in a.m. white count continues to trend down 10. Decrease in oxygen saturation, patient requiring 3 L of oxygen. Chest x- ray negative. BNP within normal range. We will continue to monitor. Recommend incentive spirometer after surgery. Now improved she is off of oxygen standing and 97%. 11. Constipation: Continue stool softener we'll add MiraLAX 12. Acute blood loss anemia which is expected after surgery. Start ferrous sulfate 3 and 25 mg twice a day. Hemoglobin 9.9. Repeat labs in a.m. DVT prophylaxis Lovenox I performed an examination of the patient and discussed their management with the physician Optical Worker. I have reviewed the Physician Optical Worker's notes and agree with the documented findings and plan of care
[2016-12-22] MEDS: clonazePAM 0.5 MG TAB PO PRN (11:00)
[2016-12-22 12:21] LABS: Glucose,Whole Blood 131 mg/dL (75-99)
[2016-12-22] MEDS: MULTIVITAMINS, THERA 1 EACH TAB PO SCH (12:26)
--- NOTE | 2016-12-22 15:23 | PN ---
Mrs. Ceballos is doing well today. She is in sinus rhythm, resting comfortably. Breathing is easier. Pain control is decent. S1, S2 heard normally. Short systolic murmur noted. Lungs reveal bilateral fine rales, slightly more than yesterday. I am recommending that we cut back the Tenormin to 25 mg b.i.d. and also give her 10 mg of Lasix IV push one dose and check a BMP. She is doing well postoperatively; had her hip surgery uneventfully. Will follow her as needed. MTDD
--- NOTE | 2016-12-22 16:20 | P.PN ---
Subjective Principal diagnosis: s/p left hip hemiarthroplasty Patient seen today resting in her hospital bed, she appears comfortable. Patient is slightly confused. She denies any increasing pain in the left hip. Objective - Vital Signs Vital signs: Vital Signs Temp 98.5 F 12/22/16 15:19 Pulse 65 12/22/16 15:19 Resp 12 12/22/16 07:00 BP 134/81 12/22/16 15:19 Pulse Ox 98 12/22/16 15:19 Intake & Output 12/21/16 12/22/16 12/22/16 18:59 06:59 18:59 Intake Total 1401 150 350 Output Total 600 275 Balance 801 150 75 Weight 52.617 kg Intake: IV 1401 Intake, IV Titration 150 Amount Sodium Chloride 0.9% 1, 150 000 ml @ 50 mls/hr IV . Q20H [facility] Rx#:[id number] Oral 350 Output: Urine 350 275 Uretheral (Wynn) 300 275 Estimated Blood Loss 250 Other: Voiding Method Indwelling Catheter Indwelling Catheter # Voids 1 - Exam Left lower extremity: Incision is clean, dry and intact. Minimal soft tissue swelling surrounding the hip. Calf is soft, no tenderness with palpation. Plantar flexion, dorsiflexion, EHL, FHL are intact. Sensory exam to light touch throughout that extremity is intact. Dorsal pedis pulses 2+. - Labs CBC & Chem 7: 12/22/16 06:05 12/22/16 06:05 Labs: Abnormal Lab Results - Last 24 Hours (Table) 12/21/16 12/22/16 12/22/16 Range/Units 16:23 06:05 06:05 WBC 20.0 H 11.3 H (3.8-10.6) k/uL RBC 3.16 L (3.80-5.40) m/uL Hgb 9.9 L D (11.4-16.0) gm/dL Hct 30.1 L (34.0-46.0) % Neutrophils # 16.8 H 8.5 H (1.3-7.7) k/uL Monocytes # 1.1 H (0-1.0) k/uL Sodium 124 L (137-145) mmol/L POC Glucose (mg/dL) (75-99) mg/dL Calcium 7.9 L (8.4-10.2) mg/dL AST 41 H (14-36) U/L Total Protein 4.4 L (6.3-8.2) g/dL Albumin 2.5 L (3.5-5.0) g/dL 12/22/16 Range/Units 12:19 WBC (3.8-10.6) k/uL RBC (3.80-5.40) m/uL Hgb (11.4-16.0) gm/dL Hct (34.0-46.0) % Neutrophils # (1.3-7.7) k/uL Monocytes # (0-1.0) k/uL Sodium (137-145) mmol/L POC Glucose (mg/dL) 131 H (75-99) mg/dL Calcium (8.4-10.2) mg/dL AST (14-36) U/L Total Protein (6.3-8.2) g/dL Albumin (3.5-5.0) g/dL Microbiology - Last 24 Hours (Table) 12/20/16 19:00 Urine Culture - Final Urine,Clean Catch Assessment and Plan Plan: Assessment: 1. Postop day #1 status post left hip hemiarthroplasty Plan: 1. Pain control, continue use of oral medication 2. Weight-bear as tolerated with walker 3. Continue with therapy 4. Daily dressing changes 5. GI and DVT prophylaxis, continue Lovenox 7. Medical recommendations 8. Cardiology recommendations 9. Further recommendations to follow Time with Patient: Less than 30
[2016-12-22] MEDS: POLYETHYLENE GLYCOL 3350 17 GM POWD.PACK PO SCH (21:57)
[2016-12-23] MEDS: HYDROmorphone 1 MG/ML 1 ML SYRINGE IVP PRN ×2 (01:29→06:53)
[2016-12-23 07:55] LABS: Basophils % (A) 0 %; CH 31.7; CHCM 33.5; Eosinophils % (A) 0 %; HCT 27.6 % (34.0-46.0); HDW 2.24; Luc # (Auto) 0.34; Luc % (Auto) 2; Lymphocytes # (A) 1.4 k/uL (1.0-4.8); Lymphocytes % (A) 7 %; MCH 30.9 pg (25.0-35.0); MCHC 32.5 g/dL (31.0-37.0); MCV 95.1 fL (80.0-100.0); Mean Platelet Volume 7.7; Monocytes # (A) 1.2 k/uL (0-1.0); Monocytes % (A) 6 %; Neutrophils # (A) 15.9 k/uL (1.3-7.7); Neutrophils % (A) 85 %; RDW 13.2 % (11.5-15.5); WBC 18.8 k/uL (3.8-10.6); WBC (Perox) 19.13
[2016-12-23 08:34] LABS: Calcium 8.5 mg/dL (8.4-10.2); Potassium 4.6 mmol/L (3.5-5.1); Total Bilirubin 0.8 mg/dL (0.2-1.3); Total Protein 4.8 g/dL (6.3-8.2)
[2016-12-23] MEDS: SODIUM CHLORIDE 0.9% 1,000 ML IV SCH ×3 (08:57→15:49)
[2016-12-23] MEDS: traMADol 50 MG TAB PO SCH ×4 (09:01→18:58)
[2016-12-23] MEDS: HYDROcodone/APAP 5-325MG 1 EACH TAB PO PRN (09:01)
[2016-12-23] MEDS: ATENOLOL 25 MG TAB PO SCH ×2 (09:02→13:42)
[2016-12-23] MEDS: ENOXAPARIN 40 MG/0.4 ML SYRINGE SQ SCH (09:02)
[2016-12-23] MEDS: FERROUS SULFATE 325 MG TAB PO SCH ×2 (09:03→18:59)
[2016-12-23] MEDS: lamoTRIgine 100 MG TAB PO SCH ×2 (09:03→16:00)
[2016-12-23] MEDS: LISINOPRIL 5 MG TAB PO SCH ×2 (09:03→13:41)
[2016-12-23] MEDS: SPIRONOLACTONE 25 MG TAB PO SCH (09:04)
[2016-12-23] MEDS: SENNOSIDES-DOCUSATE SODIUM 1 EACH TAB PO SCH (09:05)
[2016-12-23] MEDS: NALOXONE 0.4 MG/ML 1 ML VIAL IV PRN ×2 (10:12→10:43)
--- NOTE | 2016-12-23 12:23 | P.PN ---
Subjective Principal diagnosis: s/p left hip hemiarthroplasty Patient seen today resting in her hospital bed early this morning. Patient is very agitated upon exam, she is diaphoretic. She is alert when I called her name, but she is unable to answering my questions. I did have the patient's nurse call an A team, no acute cardiac abnormalities at this time. They feel this may be an exacerbation of pain. Patient did receive a dose of Narcan, but since then has had IV pain medication and seems to be calming down. Objective - Vital Signs Vital signs: Vital Signs Temp 97.0 F L 12/23/16 01:26 Pulse 97 12/23/16 10:15 Resp 16 12/23/16 10:15 BP 105/50 12/23/16 10:42 Pulse Ox 92 L 12/23/16 10:15 Intake & Output 12/22/16 12/23/16 12/23/16 18:59 06:59 18:59 Intake Total 350 850 Output Total 275 Balance 75 850 Intake: Intake, IV Titration 600 Amount Sodium Chloride 0.9% 1, 600 000 ml @ 50 mls/hr IV . Q20H [facility] Rx#:[id number] Oral 350 250 Output: Urine 275 Uretheral (Wynn) 275 Other: Voiding Method Indwelling Catheter # Voids 1 2 - Exam Left lower extremity: Incision is clean, dry and intact. Minimal soft tissue swelling surrounding the hip. Calf is soft, no tenderness with palpation. Plantar flexion, dorsiflexion, EHL, FHL are intact. Sensory exam to light touch throughout that extremity is intact. Dorsal pedis pulses 2+. - Labs CBC & Chem 7: 12/23/16 07:23 12/23/16 07:23 Labs: Abnormal Lab Results - Last 24 Hours (Table) 12/22/16 12/23/16 12/23/16 Range/Units 12:19 07:23 07:23 WBC 18.8 H (3.8-10.6) k/uL RBC 2.90 L (3.80-5.40) m/uL Hgb 9.0 L (11.4-16.0) gm/dL Hct 27.6 L (34.0-46.0) % Neutrophils # 15.9 H (1.3-7.7) k/uL Monocytes # 1.2 H (0-1.0) k/uL Sodium 130 L (137-145) mmol/L BUN 27 H (7-17) mg/dL Creatinine 1.35 H (0.52-1.04) mg/dL POC Glucose (mg/dL) 131 H (75-99) mg/dL AST 341 H (14-36) U/L ALT 179 H (9-52) U/L Total Protein 4.8 L (6.3-8.2) g/dL Albumin 2.9 L (3.5-5.0) g/dL Assessment and Plan Plan: Assessment: 1. Postop day #2 status post left hip hemiarthroplasty 2. Leukocytosis 3. Elevated liver enzymes 4. Elevated creatinine Plan: 1. Pain control, okay to use IV pain medication, cautious with dosing 2. Weight-bear as tolerated with walker 3. Continue with therapy 4. Daily dressing changes 5. GI and DVT prophylaxis, continue Lovenox 7. Medical recommendations 8. Cardiology recommendations 9. Further recommendations to follow Time with Patient: Less than 30
[2016-12-23] MEDS: MORPHINE SULFATE 4 MG/ML SYRINGE IVP PRN ×2 (12:28→15:51)
[2016-12-23] MEDS ORDERED: FUROSEMIDE 10 MG/ML 2 ML VIAL IV PRN (12:46)
--- NOTE | 2016-12-23 13:02 | P.PN ---
Subjective Patient obtunded, making abnormal mouth and arm movements Several iciness is in the room and spoke with her primary care physician From a cardiac standpoint she does not appear to be short of breath. She has a few crackles at the bases bilaterally She is receiving IV fluids 50 mL an hour since yesterday according to the nurse Suggest Shows worsening CHF then IV Lasix should be given 20 mg. I spoke to the nurse Objective - Vital Signs Vital signs: Vital Signs Temp 97.0 F L 12/23/16 01:26 Pulse 91 12/23/16 12:28 Resp 16 12/23/16 12:28 BP 111/69 12/23/16 12:28 Pulse Ox 93 L 12/23/16 12:28 Intake & Output 12/22/16 12/23/16 12/23/16 18:59 06:59 18:59 Intake Total 350 850 Output Total 275 Balance 75 850 Intake: Intake, IV Titration 600 Amount Sodium Chloride 0.9% 1, 600 000 ml @ 50 mls/hr IV . Q20H [facility] Rx#:[id number] Oral 350 250 Output: Urine 275 Uretheral (Wynn) 275 Other: Voiding Method Indwelling Catheter # Voids 1 2 - Labs CBC & Chem 7: 12/23/16 07:23 12/23/16 07:23 Labs: Abnormal Lab Results - Last 24 Hours (Table) 12/23/16 12/23/16 Range/Units 07:23 07:23 WBC 18.8 H (3.8-10.6) k/uL RBC 2.90 L (3.80-5.40) m/uL Hgb 9.0 L (11.4-16.0) gm/dL Hct 27.6 L (34.0-46.0) % Neutrophils # 15.9 H (1.3-7.7) k/uL Monocytes # 1.2 H (0-1.0) k/uL Sodium 130 L (137-145) mmol/L BUN 27 H (7-17) mg/dL Creatinine 1.35 H (0.52-1.04) mg/dL AST 341 H (14-36) U/L ALT 179 H (9-52) U/L Total Protein 4.8 L (6.3-8.2) g/dL Albumin 2.9 L (3.5-5.0) g/dL
--- NOTE | 2016-12-23 13:11 | XR ---
EXAMINATION TYPE: XR chest 1V portable DATE OF EXAM: 12/23/2016 COMPARISON: 12/20/2016 HISTORY: Chest pain fluid overload TECHNIQUE: Single frontal view of the chest is obtained. FINDINGS: There is some mild infiltrate in the right lower lobe. There is no overt heart failure. Ol d right humeral neck fracture is noted. There is no pleural effusion. Thoracic aorta is atheromatous. IMPRESSION: There is new mild pneumonia in the right lower lobe compared to last exam. No heart fail ure.
[2016-12-23] MEDS: MULTIVITAMINS, THERA 1 EACH TAB PO SCH (13:38)
--- NOTE | 2016-12-23 14:50 | P.PN ---
Subjective Patient has significant change in her mentation overnight. Since this morning she has been more confused. She is not answering questions appropriately. She was easily arousable when I called her name that quickly went back to sleep and close her eyes. She is also having diffuse crackles and rhonchi all over the chest. She had an episode of hypotension overnight with systolic blood pressure in the 90s that resolved quickly. Blood pressure currently within acceptable range. Patient is maintaining good oxygen saturation. Chest x-ray this morning showed possible right lower lobe pneumonia. Concern about aspiration pneumonia. Patient has not been getting anything since this morning secondary to her mental status change. There is no neurological deficit that is obvious. Objective - Vital Signs Vital signs: Vital Signs Temp 97.0 F L 12/23/16 01:26 Pulse 91 12/23/16 12:28 Resp 16 12/23/16 12:28 BP 111/69 12/23/16 12:28 Pulse Ox 93 L 12/23/16 12:28 Intake & Output 12/22/16 12/23/16 12/23/16 18:59 06:59 18:59 Intake Total 350 850 Output Total 275 Balance 75 850 Intake: Intake, IV Titration 600 Amount Sodium Chloride 0.9% 1, 600 000 ml @ 50 mls/hr IV . Q20H [facility] Rx#:[id number] Oral 350 250 Output: Urine 275 Uretheral (Wynn) 275 Other: Voiding Method Indwelling Catheter # Voids 1 2 - Exam General: The patient is lethargic but easily arousable. She is having occasional tremor to both upper extremities. Eye: there is normal conjunctiva bilaterally. Neck: The neck is supple, there is no JVD. Cardiovascular: Normal S1-S2, no S3-S4, no murmurs. Respiratory: Lungs diffuse rhonchi all over the chest Gastrointestinal: Abdomen is soft, nontender Musculoskeletal: There is no pedal edema. Neurological:. Speech is normal. Skin: Skin is warm and dry - Labs CBC & Chem 7: 12/23/16 07:23 12/23/16 07:23 Labs: Abnormal Lab Results - Last 24 Hours (Table) 12/23/16 12/23/16 Range/Units 07:23 07:23 WBC 18.8 H (3.8-10.6) k/uL RBC 2.90 L (3.80-5.40) m/uL Hgb 9.0 L (11.4-16.0) gm/dL Hct 27.6 L (34.0-46.0) % Neutrophils # 15.9 H (1.3-7.7) k/uL Monocytes # 1.2 H (0-1.0) k/uL Sodium 130 L (137-145) mmol/L BUN 27 H (7-17) mg/dL Creatinine 1.35 H (0.52-1.04) mg/dL AST 341 H (14-36) U/L ALT 179 H (9-52) U/L Total Protein 4.8 L (6.3-8.2) g/dL Albumin 2.9 L (3.5-5.0) g/dL Assessment and Plan Plan: 1. Acute mental status change: Exact etiology unclear. I would obtain arterial blood gas to rule out CO2 narcosis. I would also obtain stat computed tomography scan of the brain for further evaluation. I will request a neurology consultation. Possible aspiration pneumonia might be contributing factor. 2. Right lower lobe pneumonia: Possibly aspiration. I will start patient on broad-spectrum antibiotic. 3. Left femoral neck fracture: Postoperative day #2 status post left hip hemiarthroplasty. 4. 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 History of chronic systolic congestive heart failure with no evidence of exacerbation. EF of 25-30%. Cardiology did discontinue the Norvasc 5. Chronic left bundle branch block 6. Essential hypertension blood pressure on the lower side. Continue to hold blood pressure medications for now. 6. Hyperlipidemia 7. Bipolar
[2016-12-23 14:51] LABS: ABG PCO2 39 mmHg (35-45); ABG PH 7.29 (7.35-7.45)
[2016-12-23 14:52] LABS: ABG Base Excess -7.3 mmol/L; ABG HCO3 18 mmol/L (21-25); ABG PO2 65 mmHg (83-108); ABG TCO2 19 mmol/L (19-24)
--- NOTE | 2016-12-23 15:30 | CT ---
EXAMINATION TYPE: CT brain wo con DATE OF EXAM: 12/23/2016 COMPARISON: 12/20/2016 HISTORY: Altered mental status, recent fall CT DLP: 729.3 mGycm Automated exposure control for dose reduction was used. FINDINGS: There is mild cerebral cortical atrophy. There is no mass effect nor midline shift. There is no sign of intracranial hemorrhage. The calvarium is intact. IMPRESSION: MILD ATROPHY. NO ACUTE INTRACRANIAL ABNORMALITY. NO CHANGE.
[2016-12-23] MEDS: PIPERACILLIN-TAZOBACTAM 3.375 GM in DEXTROSE/WATER 1 50ML.BAG IVPB SCH (16:00)
[2016-12-23 18:52] LABS: Glucose,Whole Blood 87 mg/dL (75-99)
--- NOTE | 2016-12-23 19:26 | P.CNNES ---
History of Present Illness Consult date: 12/23/16 Reason for Consult: Patient with acute mental status changes and confusion. History of Present Illness: This patient is a 86-year-old right-handed white female who was admitted to [facility] on 12/20/2016 after she had sustained a fall. Apparently she had an injury at home in which she fell and landed on her left hip. She was unable to get up following this and was brought into the emergency room for further evaluation. She apparently had evidence of a left femoral neck fracture. Orthopedic surgery was consulted and she underwent a total hip arthroplasty with Dr. nicolasa Cameron. Given her age she was a high risk for surgery but did complete surgery and was postoperative day 2 today. Apparently yesterday evening she was noted to be quite confused and lethargic. This morning she remains somewhat obtunded but arousable to sternal rub. She was sent for an immediate computed tomography scan of the brain which was done this afternoon. CAT scan of the brain revealed only mild atrophy with no acute intracranial abnormality. Patient continued to deteriorate and became more and more obtunded with difficulty with her breathing. She was transferred to the intensive care unit where she is currently being evaluated and treated. She is currently on BiPAP. She was seen by cardiology as she does have a history of nonischemic severe cardiomyopathy with ejection fraction of 20%. The patient is now seen in the intensive care unit. She has BiPAP in place. She is not following any commands. Her breathing is quite labored. Apparently according to the ICU nursing staff she is a DO NOT RESUSCITATE and family is not requesting any heroic measures or intubation for the patient at this time. The patient does seem to be very much short of breath. She is moving about quite vigorously in her ICU bed. She is not opening her eyes and is not following any commands. She is noted to be moving all extremities. As noted her CAT scan of the brain failed to reveal any evidence of acute stroke or hemorrhage. Pulmonary medicine has been consulted for further treatment. Her blood gases are very poor with a pH of 7.29. PCO2 was 39. Chest x-ray apparently revealed only mild effusion. Currently she remains critical in the intensive care unit. Neurology is now been consulted for further evaluation and recommendations. Review of Systems ROS unobtainable: due to mental status Constitutional: Denies chills, Denies fever Eyes: denies blurred vision, denies pain Ears, nose, mouth and throat: Denies headache, Denies sore throat Cardiovascular: Denies chest pain, Denies shortness of breath Respiratory: Denies cough Gastrointestinal: Denies abdominal pain, Denies diarrhea, Denies nausea, Denies vomiting Genitourinary: Denies dysuria, Denies hematuria Musculoskeletal: Denies myalgias Integumentary: Denies pruritus, Denies rash Neurological: Reports change in mentation, Reports confusion, Denies numbness, Denies weakness Psychiatric: Denies anxiety, Denies depression Endocrine: Denies fatigue, Denies weight change Past Medical History Past Medical History: GERD/Reflux, Hyperlipidemia, Hypertension Additional Past Medical History / Comment(s): Diverticulosis History of Any Multi-Drug Resistant Organisms: None Reported Past Surgical History: Appendectomy, Joint Replacement Additional Past Surgical History / Comment(s): Lt knee replacement x2 Past Anesthesia/Blood Transfusion Reactions: No Reported Reaction Additional Past Anesthesia/Blood Transfusion Reaction / Comment(s): CLAUSTERPHOBIC Smoking Status: Never smoker - Past Family History Mother Family Medical History: CVA/TIA, Hypertension Father Family Medical History: Cancer, Hypertension Additional Family Medical History / Comment(s): KIDNEY CANCER Medications and Allergies Home Medications Medication Instructions Recorded Confirmed Type clonazePAM [KlonoPIN] 0.5 mg PO BID PRN 09/06/13 12/20/16 History fluvoxaMINE [Luvox] 100 mg PO TID 09/06/13 12/20/16 History lamoTRIgine [LaMICtal] 200 mg PO TID 09/06/13 12/20/16 History Multivitamins, Thera [Multivitamin 1 tab PO DAILY 12/06/16 12/20/16 History (formulary)] amLODIPine [Norvasc] 5 mg PO DAILY 12/20/16 12/20/16 History Allergies Allergy/AdvReac Type Severity Reaction Status Date / Time codeine AdvReac Nausea & Verified 12/21/16 12:41 Vomiting Physical Examination - Vital Signs Vital Signs: Vital Signs Temp Pulse Resp BP BP Pulse Ox 12/23/16 15:36 90 L 12/23/16 15:14 98.9 F 99 16 104/53 97 12/23/16 12:28 91 16 111/69 93 L 08/19/17 10:42 105/50 12/23/16 10:15 97 16 103/50 92 L 12/23/16 03:40 92 98/53 12/23/16 01:26 97.0 F L 96 16 90/51 93 L 12/22/16 20:09 98.4 F 102 H 16 95/48 93 L Intake and Output 12/23/16 12/23/16 12/23/16 06:59 14:59 22:59 Intake Total 850 Balance 850 Intake: Intake, IV Titration 600 Amount Sodium Chloride 0.9% 1, 600 000 ml @ 50 mls/hr IV . Q20H [facility] Rx#:[id number] Oral 250 Other: # Voids 2 - Constitutional General appearance: average body habitus, cooperative - EENT EENT: PERRL, mucous membranes moist - Respiratory Respiratory: lungs clear, normal breath sounds - Cardiovascular Cardiovascular: regular rate, normal S1, normal S2 Extremities: no peripheral edema bilaterally - Gastrointestinal Gastrointestinal: normoactive bowel sounds - Integumentary Integumentary: normal - Neurologic Cranial nerve examination: PERRL, V1/V2/V3 grossly intact, face symmetric, tongue midline, intact gag reflex, intact corneal reflex Speech examination: global aphasia Sensorimotor examination: intact Motor examination - right side: 3/5: biceps, triceps, wrist flexion, wrist extension, clothing manager, hip flexors, knee extensors, dorsiflexion, toe extension (EHL) , plantarflexion Motor examination - left side: 3/5: biceps, triceps, wrist flexion, wrist extension, clothing manager, hip flexors, knee extensors, dorsiflexion, toe extension (EHL) , plantarflexion Detailed sensory examination: intact Reflex and gait examination: intact Reflexes: 1+: ankle, bicep, knee, tricep - Musculoskeletal Musculoskeletal: no pain - Psychiatric Psychiatric: agitated Results - Laboratory Findings CBC and BMP: 12/23/16 07:23 12/23/16 07:23 Abnormal Lab Findings: Abnormal Labs 12/20/16 12/20/16 12/20/16 14:08 14:08 14:08 WBC 24.0 H RBC Hgb Hct Plt Count 510 H Neutrophils # 21.6 H Lymphocytes # Monocytes # ABG pH ABG pO2 ABG HCO3 ABG O2 Saturation Sodium 121 L Chloride 88 L BUN 24 H Creatinine Glucose 101 H POC Glucose (mg/dL) Calcium Phosphorus 4.6 H AST 64 H ALT 64 H Total Creatine Kinase 612 H CK-MB (CK-2) 23.2 H* Total Protein Albumin Urine Ketones 12/20/16 12/21/16 12/21/16 19:00 10:10 10:10 WBC 15.5 H RBC Hgb Hct Plt Count Neutrophils # 13.7 H Lymphocytes # 0.9 L Monocytes # ABG pH ABG pO2 ABG HCO3 ABG O2 Saturation Sodium 124 L Chloride 94 L BUN 18 H Creatinine Glucose 70 L POC Glucose (mg/dL) Calcium 8.3 L Phosphorus AST 46 H ALT Total Creatine Kinase CK-MB (CK-2) Total Protein 5.2 L Albumin 3.1 L Urine Ketones 1+ H 12/21/16 12/22/16 12/22/16 16:23 06:05 06:05 WBC 20.0 H 11.3 H RBC 3.16 L Hgb 9.9 L D Hct 30.1 L Plt Count Neutrophils # 16.8 H 8.5 H Lymphocytes # Monocytes # 1.1 H ABG pH ABG pO2 ABG HCO3 ABG O2 Saturation Sodium 124 L Chloride BUN Creatinine Glucose POC Glucose (mg/dL) Calcium 7.9 L Phosphorus AST 41 H ALT Total Creatine Kinase CK-MB (CK-2) Total Protein 4.4 L Albumin 2.5 L Urine Ketones 12/22/16 12/23/16 12/23/16 12:19 07:23 07:23 WBC 18.8 H RBC 2.90 L Hgb 9.0 L Hct 27.6 L Plt Count Neutrophils # 15.9 H Lymphocytes # Monocytes # 1.2 H ABG pH ABG pO2 ABG HCO3 ABG O2 Saturation Sodium 130 L Chloride BUN 27 H Creatinine 1.35 H Glucose POC Glucose (mg/dL) 131 H Calcium Phosphorus AST 341 H ALT 179 H Total Creatine Kinase CK-MB (CK-2) Total Protein 4.8 L Albumin 2.9 L Urine Ketones 12/23/16 14:49 WBC RBC Hgb Hct Plt Count Neutrophils # Lymphocytes # Monocytes # ABG pH 7.29 L ABG pO2 65 L ABG HCO3 18 L ABG O2 Saturation 90.0 L Sodium Chloride BUN Creatinine Glucose POC Glucose (mg/dL) Calcium Phosphorus AST ALT Total Creatine Kinase CK-MB (CK-2) Total Protein Albumin Urine Ketones Assessment and Plan (1) Closed left hip fracture Status: Acute (2) Acute encephalopathy Status: Acute Code(s): G93.40 - ENCEPHALOPATHY, UNSPECIFIED (3) Respiratory failure Status: Acute Code(s): J96.90 - RESPIRATORY FAILURE, UNSP, UNSP W HYPOXIA OR HYPERCAPNIA (4) Cardiomyopathy Status: Acute Code(s): I42.9 - CARDIOMYOPATHY, UNSPECIFIED Plan: This patient is a 86-year-old female who was transferred to the intensive care unit today due to respiratory distress and worsening mental status. She was sent for a computed tomography scan of the brain earlier today which failed to reveal any evidence of acute stroke or hemorrhage. There is mild atrophy. She continued to worsen in terms of her respiratory status. She is now transferred to the intensive care unit and remains on BiPAP. She is not following any commands. She remains encephalopathic. She does seem to be showing signs of impending respiratory failure. We are awaiting further recommendations from pulmonary medicine. Her blood gases are quite poor with a pH of 7.29. Her overall prognosis at this time remains very guarded in the intensive care unit. She is a DO NOT RESUSCITATE status at this time as per family request. We will continue to monitor her condition closely but her prognosis remains very guarded. There were no family members at bedside at this time to update them on her overall neurological status. We have informed the ICU nursing staff regarding her CAT scan of the brain results. We will continue to follow her closely in the intensive care unit during this admission. Her overall prognosis at this time remains very guarded. Time with Patient: Greater than 30
[2016-12-23] MEDS ORDERED: FUROSEMIDE 10 MG/ML 2 ML VIAL IV STA (19:27)
[2016-12-23] MEDS ORDERED: FUROSEMIDE 10 MG/ML 4 ML VIAL IV STA (19:43)
[2016-12-23] MEDS: IPRATROPIUM-ALBUTEROL 3 ML NEB INHALATION SCH ×2 (19:51→23:08)
[2016-12-23 20:12] LABS: Basophils % (A) 0 %; CH 30.8; CHCM 33.3; Eosinophils % (A) 0 %; HCT 27.2 % (34.0-46.0); HDW 2.36; HGB 9.2 gm/dL (11.4-16.0); Luc # (Auto) 0.28; Luc % (Auto) 2; Lymphocytes # (A) 1.1 k/uL (1.0-4.8); Lymphocytes % (A) 6 %; MCH 31.4 pg (25.0-35.0); MCHC 33.7 g/dL (31.0-37.0); MCV 93.1 fL (80.0-100.0); Mean Platelet Volume 7.6; Monocytes # (A) 0.9 k/uL (0-1.0); Monocytes % (A) 5 %; Neutrophils # (A) 15.8 k/uL (1.3-7.7); Neutrophils % (A) 87 %; RBC 2.92 m/uL (3.80-5.40); RDW 13.2 % (11.5-15.5); WBC 18.1 k/uL (3.8-10.6); WBC (Perox) 19.28
[2016-12-23] MEDS ORDERED: MORPHINE SULFATE (100 MG/2 ML) 100 MG in SODIUM CHLORIDE 0.9% 100 ML IV SCH (20:15)
[2016-12-23] MEDS ORDERED: ATROPINE OPHTH SOLN 1% 5ML BTL SUBLINGUAL PRN (20:15)
[2016-12-23] MEDS ORDERED: SCOPOLAMINE 1.5MG/72HR PATCH TRANSDERM PRN (20:15)
[2016-12-23] MEDS ORDERED: ACETAMINOPHEN IV (For NPO) 1,000 MG in EMPTY BAG 1 BAG IVPB ONE (20:15)
[2016-12-23] MEDS ORDERED: MORPHINE SULFATE 4 MG/ML SYRINGE IVP PRN (20:19)
[2016-12-23 20:26] LABS: Calcium 8.6 mg/dL (8.4-10.2); Magnesium 1.9 mg/dL (1.6-2.3); Phosphorous 5.5 mg/dL (2.5-4.5); Potassium 5.1 mmol/L (3.5-5.1)
[2016-12-23] MEDS: LORazepam 2 MG/ML SYRINGE IV PRN (20:28)
[2016-12-23] MEDS: POLYETHYLENE GLYCOL 3350 17 GM POWD.PACK PO SCH (22:18)
[2016-12-24] MEDS: PIPERACILLIN-TAZOBACTAM 3.375 GM in DEXTROSE/WATER 1 50ML.BAG IVPB SCH (00:50)
[2016-12-24] MEDS: lamoTRIgine 100 MG TAB PO SCH (02:02)
[2016-12-24] MEDS: traMADol 50 MG TAB PO SCH (02:03)
[2016-12-24] MEDS: SODIUM CHLORIDE 0.9% 1,000 ML IV SCH ×3 (03:49→18:34)
[2016-12-24] MEDS: IPRATROPIUM-ALBUTEROL 3 ML NEB INHALATION SCH ×3 (04:05→11:06)
[2016-12-24 04:41] LABS: Basophils % (A) 0 %; CH 31.5; CHCM 33.1; Eosinophils % (A) 0 %; HCT 27.8 % (34.0-46.0); HDW 2.29; HGB 9.1 gm/dL (11.4-16.0); Luc # (Auto) 0.16; Luc % (Auto) 1; Lymphocytes % (A) 7 %; MCH 31.2 pg (25.0-35.0); MCHC 32.7 g/dL (31.0-37.0); MCV 95.5 fL (80.0-100.0); Mean Platelet Volume 7.8; Monocytes # (A) 0.5 k/uL (0-1.0); Monocytes % (A) 3 %; Neutrophils # (A) 14.1 k/uL (1.3-7.7); Neutrophils % (A) 89 %; RBC 2.91 m/uL (3.80-5.40); RDW 13.5 % (11.5-15.5); WBC 15.8 k/uL (3.8-10.6); WBC (Perox) 16.51
[2016-12-24 04:57] LABS: Calcium 8.5 mg/dL (8.4-10.2); Potassium 4.3 mmol/L (3.5-5.1); Total Bilirubin 0.7 mg/dL (0.2-1.3); Total Protein 4.8 g/dL (6.3-8.2)
[2016-12-24] MEDS: LORazepam 2 MG/ML SYRINGE IV PRN (05:27)
[2016-12-24] MEDS ORDERED: ATENOLOL 25 MG TAB PO SCH (09:00)
--- NOTE | 2016-12-24 13:29 | P.PN ---
Subjective Principal diagnosis: s/p left hip hemiarthroplasty Patient was seen today in the ICU. Patient was transferred up there yesterday afternoon. She has been seen by both the tube coverer and neurology. Patient's O2 sats were severely decreased and there was concerns or respiratory distress. At this time the patient is on comfort care. Objective - Vital Signs Vital signs: Vital Signs Temp 98.3 F 12/24/16 04:00 Pulse 94 12/24/16 07:00 Resp 10 L 12/24/16 08:00 BP 71/33 12/24/16 07:00 Pulse Ox 98 12/24/16 00:00 Intake & Output 12/23/16 12/24/16 12/24/16 18:59 06:59 18:59 Intake Total 350 224.621 20 Output Total 235 45 Balance 350 -10.379 -25 Weight 56 kg Intake: Intake, IV Titration 350 224.621 20 Amount Morphine Sulfate (100 mg/ 24.621 2 ml) 100 mg In Sodium Chloride 0.9% 100 ml @ 1 MG/HR 1.02 mls/hr IV . Q24H [facility] Rx#:[id number] Sodium Chloride 0.9% 1, 350 200 20 000 ml @ 20 mls/hr IV . Q24H [facility] Rx#:[id number] Oral 0 Output: Urine 235 45 Other: Voiding Method Indwelling Catheter Indwelling Catheter Indwelling Catheter - Exam Left lower extremity: Abductor pillow remains in place, the incision is clean, dry and intact. - Labs CBC & Chem 7: 12/24/16 04:16 12/24/16 04:16 Labs: Abnormal Lab Results - Last 24 Hours (Table) 12/23/16 12/23/16 12/23/16 Range/Units 14:49 19:56 19:56 WBC 18.1 H (3.8-10.6) k/uL RBC 2.92 L (3.80-5.40) m/uL Hgb 9.2 L (11.4-16.0) gm/dL Hct 27.2 L (34.0-46.0) % Neutrophils # 15.8 H (1.3-7.7) k/uL ABG pH 7.29 L (7.35-7.45) ABG pO2 65 L (83-108) mmHg ABG HCO3 18 L (21-25) mmol/L ABG O2 Saturation 90.0 L (94-97) % Sodium 134 L (137-145) mmol/L Carbon Dioxide 21 L (22-30) mmol/L BUN 46 H (7-17) mg/dL Creatinine 1.50 H (0.52-1.04) mg/dL Phosphorus 5.5 H (2.5-4.5) mg/dL AST (14-36) U/L ALT (9-52) U/L Total Protein (6.3-8.2) g/dL Albumin (3.5-5.0) g/dL 12/24/16 12/24/16 Range/Units 04:16 04:16 WBC 15.8 H (3.8-10.6) k/uL RBC 2.91 L (3.80-5.40) m/uL Hgb 9.1 L (11.4-16.0) gm/dL Hct 27.8 L (34.0-46.0) % Neutrophils # 14.1 H (1.3-7.7) k/uL ABG pH (7.35-7.45) ABG pO2 (83-108) mmHg ABG HCO3 (21-25) mmol/L ABG O2 Saturation (94-97) % Sodium 136 L (137-145) mmol/L Carbon Dioxide 21 L (22-30) mmol/L BUN 45 H (7-17) mg/dL Creatinine 1.40 H (0.52-1.04) mg/dL Phosphorus (2.5-4.5) mg/dL AST 866 H (14-36) U/L ALT 574 H (9-52) U/L Total Protein 4.8 L (6.3-8.2) g/dL Albumin 2.8 L (3.5-5.0) g/dL Assessment and Plan Plan: Assessment: 1. Postop day #3 status post left hip hemiarthroplasty 2. Leukocytosis 3. Elevated liver enzymes 4. Elevated creatinine Plan: At this time, patient will continue with comfort care. I would recommend continue use of abductor pillow and daily dressing changes. We will be available for any further questions regarding this patient Time with Patient: Less than 30
--- NOTE | 2016-12-24 15:58 | P.PN ---
Subjective Patient is currently on comfort care. She has significant deterioration in overall clinical condition last night after she had an acute episode of respiratory failure. Patient is DNR/DNI. Her care was discussed with her son who is a respiratory therapist and he elected to proceed with comfort measures. Objective - Vital Signs Vital signs: Vital Signs Temp 98.3 F 12/24/16 04:00 Pulse 94 12/24/16 07:00 Resp 10 L 12/24/16 08:00 BP 71/33 12/24/16 07:00 Pulse Ox 98 12/24/16 00:00 Intake & Output 12/23/16 12/24/16 12/24/16 18:59 06:59 18:59 Intake Total 350 224.621 99.968 Output Total 235 45 Balance 350 -10.379 54.968 Weight 56 kg Intake: Intake, IV Titration 350 224.621 99.968 Amount Morphine Sulfate (100 mg/ 24.621 79.968 2 ml) 100 mg In Sodium Chloride 0.9% 100 ml @ 1 MG/HR 1.02 mls/hr IV . Q24H [facility] Rx#:[id number] Sodium Chloride 0.9% 1, 350 200 20 000 ml @ 20 mls/hr IV . Q24H [facility] Rx#:[id number] Oral 0 Output: Urine 235 45 Other: Voiding Method Indwelling Catheter Indwelling Catheter Indwelling Catheter - Labs CBC & Chem 7: 12/24/16 04:16 12/24/16 04:16 Labs: Abnormal Lab Results - Last 24 Hours (Table) 12/23/16 12/23/16 12/24/16 Range/Units 19:56 19:56 04:16 WBC 18.1 H 15.8 H (3.8-10.6) k/uL RBC 2.92 L 2.91 L (3.80-5.40) m/uL Hgb 9.2 L 9.1 L (11.4-16.0) gm/dL Hct 27.2 L 27.8 L (34.0-46.0) % Neutrophils # 15.8 H 14.1 H (1.3-7.7) k/uL Sodium 134 L (137-145) mmol/L Carbon Dioxide 21 L (22-30) mmol/L BUN 46 H (7-17) mg/dL Creatinine 1.50 H (0.52-1.04) mg/dL Phosphorus 5.5 H (2.5-4.5) mg/dL AST (14-36) U/L ALT (9-52) U/L Total Protein (6.3-8.2) g/dL Albumin (3.5-5.0) g/dL 12/24/16 Range/Units 04:16 WBC (3.8-10.6) k/uL RBC (3.80-5.40) m/uL Hgb (11.4-16.0) gm/dL Hct (34.0-46.0) % Neutrophils # (1.3-7.7) k/uL Sodium 136 L (137-145) mmol/L Carbon Dioxide 21 L (22-30) mmol/L BUN 45 H (7-17) mg/dL Creatinine 1.40 H (0.52-1.04) mg/dL Phosphorus (2.5-4.5) mg/dL AST 866 H (14-36) U/L ALT 574 H (9-52) U/L Total Protein 4.8 L (6.3-8.2) g/dL Albumin 2.8 L (3.5-5.0) g/dL Assessment and Plan Plan: This is a 86-year-old female with past medical history noted below who presented to the hospital with left hip fracture after she sustained a fall and underwent a left hip hemiarthroplasty. Patient's condition was relatively stable up until 12/23/2016 evening when she started experiencing worsening shortness of breath and was found to be in acute respiratory failure. She was treated aggressively with IV fluids and broad-spectrum antibiotic for an underlying pneumonia. She was also given multiple doses of IV Lasix for possible fluid overload. Patient was DNR/DNI. She was placed on BiPAP. Subsequently her care was discussed with her son who is a respiratory therapist who elected to pursue comfort measures. BiPAP was discontinued. Patient was placed on morphine drip. She is currently having apneic breathing. Her prognosis is very guarded. Family at bedside. We will continue comfort measures.
[2016-12-25 01:36] VITALS: BP 66/24; PULSE 0; RESP 0; TEMP 97.6
--- NOTE | 2016-12-28 12:37 | CDI ---
In responding to this query, please exercise your independent professional judgment. The [facility] Coding Staff and Clinical Documentation Specialists appreciate your assistance in clarifying documentation, maintaining compliance with coding guidelines, accurately documenting patients condition and capturing severity of illness. The fact that a question is asked does not imply that any particular answer is desired or expected. Communication forms are a method of clarifying documentation and are not made part of the Legal Health Record. Thank you in advance for your clarification. Last Revision, August 2016 Asher Cooper [address] [facility] [place] [address] Documentation Clarification Form Date: 12/28/2016 12:17:00 PM From: Martha Whipple RN, CCDS Admit Date: 12/20/2016 3:40:00 PM Patient Name: Carmen Ceballos Visit Number: [id number] Dr. Luke Gross Documentation and location in medical record included possible aspiration pneumonia with mental status changes and respiratory distress. History/Risk Factors: Gerd, HTN, chronic systolic CHF, nonischemic cardiomyopathy. Fall with hip fracture with hemiarthroplasty this admission. Clinical Indicators: 12/22 Ortho: Progress Note: "confused." 12/23 Ortho; "agitated and diaphoretic." 12/23 Cardiology: "Pt obtunded, making abnormal mouth and arm movement." 12/24 Medical Progress Note: "Patient's condition was relatively stable up until 12/23/2016 evening when she started experiencing worsening shortness of breath and was found to be in acute respiratory failure. She was treated aggressively with IV fluids and broad-spectrum antibiotic for an underlying pneumonia." WBC: 24/20/11.3/18.1/15.8 Left Shift: 21.6/16.8/8.5/15.8/14.1 Lactic acid: 1.5 ABG/CBG: pH 7.29 pCO2 65 pHCO3 18 Lactate -7.3 Blood cultures: no cultures done Vitals signs on admission: Temp 98.3, HR 94, RR 18, B/P 143/82, Spo2 86% RA 12/22-12/23 HR increased, B/P decreased, Spo2 decreased Other Clinical Indicators: End Organ Involvement: Encephalopathy with doubling of BUN and creatinine Treatment: ID Consult: not ordered Antibiotics: Zosyn 3.375 gm IVPB q 8 hrs, Rocephin 2gm IVPB Q 8 hrs IV Bolus: 500 CC fluid bolus (pt was receiving doses of IV Lasix) Other: A-team was called d/t mental status and diaphoresis 12/23 per surgeon request In your professional opinion, please clarify if these findings signify one of the following conditions, whether the condition is POA, and cause, if known: Sepsis Severe Sepsis Septic Shock Unable to determine Other, please specify Present on Admission: Yes No * Identify the (suspected) organism * Link or clarify if there is associated (due to/with): - Organ failure - Shock SIRS Criteria: 2 or more of the following may indicate SIRS Temperature < 96.8F (36C) or > 101.0F (38C) Heart Rate > 90 bpm Respiratory Rate > 20 breaths/min or PaCO2 < 32 mmHg White Blood Cell Count > 12,000 or < 4,000 cells/mm3 or > 10% bands Lactate >2.0 mmol/L (>4.0 is equivalent to septic shock) Please document in the Summary in order to capture severity of illness and risk of mortality. Include clinical findings that support your diagnosis. FYI: Press F11 to launch patient chart. Place X here if this finding has no clinical significance, is not applicable or if you are not able to provide any additional documentation. KENDYD
--- NOTE | 2016-12-28 12:46 | CDI ---
In responding to this query, please exercise your independent professional judgment. The [facility] Coding Staff and Clinical Documentation Specialists appreciate your assistance in clarifying documentation, maintaining compliance with coding guidelines, accurately documenting patients condition and capturing severity of illness. The fact that a question is asked does not imply that any particular answer is desired or expected. Communication forms are a method of clarifying documentation and are not made part of the Legal Health Record. Thank you in advance for your clarification. Last Revision, July 2015 Asher Cooper [address] [facility] [place] [address] Documentation Clarification Form Mortality Review Date: 12/28/2016 12:07:00 PM From: Martha Whipple RN, CCDS Admit Date: 12/20/2016 3:40:00 PM Patient Name: Carmen Ceballos Visit Number: [id number] Dr. Luke Gross History/Risk Factors: Chronic systolic CHF, nonischemic cardiomyopathy, left bundle branch block Clinical Indicators: 12/22 Ortho: Progress Note: "confused." 12/23 Ortho; "agitated and diaphoretic." 12/23 Cardiology: "Pt obtunded, making abnormal mouth and arm movement." 12/24 Medical Progress Note: "Patient's condition was relatively stable up until 12/23/2016 evening when she started experiencing worsening shortness of breath and was found to be in acute respiratory failure. She was treated aggressively with IV fluids and broad-spectrum antibiotic for an underlying pneumonia." Vital signs/Pulse oximetry: down to 82% on 6L NC in a patient that was previously non-oxygen dependant 12/23 last documented Lung/Breathing assessment: Respiratory: Lungs diffuse rhonchi all over the chest ABG/CBG: pH 7.29 pCO2 65 pHCO3 18 Lactate -7.3 Treatment: Breathing TX: Duoneb Q 4 hrs Continuous Pulse ox while in ICU BiPap placed on patient until she was made comfort measures O2: increased from 2L NC to 50% BiPap to 100% NRB In your professional opinion, can you please clarify if these findings signify one of the following conditions? Acuity: o Acute o Chronic o Acute on Chronic Respiratory Status: Respiratory failure with hypercapnia o Respiratory failure with hypoxia o Acute Respiratory Distress o Other Diagnosis, please specify o Unable to determine Please document in your summary in order to capture severity of illness and risk of mortality. Include clinical findings that support your diagnosis. FYI: Press F11 to launch patient chart. Place X here if this finding has no clinical significance, is not applicable or if you are not able to provide any additional documentation. KENDYD
--- NOTE | 2016-12-28 12:58 | CDI ---
In responding to this query, please exercise your independent professional judgment. The [facility] Coding Staff and Clinical Documentation Specialists appreciate your assistance in clarifying documentation, maintaining compliance with coding guidelines, accurately documenting patients condition and capturing severity of illness. The fact that a question is asked does not imply that any particular answer is desired or expected. Communication forms are a method of clarifying documentation and are not made part of the Legal Health Record. Thank you in advance for your clarification. Last Revision, March 2015 Asher Cooper [address] [facility] [place] [address] Documentation Clarification Form Mortality review Date: 12/28/2016 12:47:00 PM From: Martha Whipple RN, CCDS Admit Date: 12/20/2016 3:40:00 PM Patient Name: Carmen Ceballos Visit Number: [id number] Dr. Luke Gross Encephalopathy is documented in the Neurology Consult and requires further specification History/Risk factors: Htn, Gerd, admitted with left femoral neck FX in for left hemiarthroplasty Clinical Indicators: 12/22 Ortho: "Confused" 12/23 Ortho: "Agitated and diaphoretic." 12/23 Cardiology: "obtunded." Labs: WBC //11.3/18.1/15.8, Hgb 13.8/12.6//9.9/9.2/9.1, BUN //46/45, creatinine .8/.77/1.5/1.4, GFR: >60/33/36 ABG: PH 7.29, Po2 65, HCO3 18, O2 Sat 90% 12/23 CT Brain: MILD ATROPHY. NO ACUTE INTRACRANIAL ABNORMALITY. NO CHANGE. Treatment: Consults: Neurology, Cardiology BiPAP IVF Bolus IV Zosyn and IV Rocephin A-Team call, Pain control In your professional opinion, can you please clarify the specific type of encephalopathy, if known? Metabolic Encephalopathy Anoxic Encephalopathy Hypertensive Encephalopathy Metabolic Encephalopathy Septic Encephalopathy Toxic Encephalopathy - Causal Condition: Alcoholism, Hepatitis, other disease process? Other, please specify Unable to determine Please document in your summary in order to capture severity of illness and risk of mortality. Include clinical findings that support your diagnosis. FYI: Press F11 to launch patient chart. Place X here if this finding has no clinical significance, is not applicable or if you are not able to provide any additional documentation. MTDD
--- NOTE | 2016-12-28 13:08 | CDI ---
In responding to this query, please exercise your independent professional judgment. The [facility] Coding Staff and Clinical Documentation Specialists appreciate your assistance in clarifying documentation, maintaining compliance with coding guidelines, accurately documenting patients condition and capturing severity of illness. The fact that a question is asked does not imply that any particular answer is desired or expected. Communication forms are a method of clarifying documentation and are not made part of the Legal Health Record. Thank you in advance for your clarification. Last Revision, March 2015 Asher Cooper [address] [facility] [place] [address] Documentation Clarification Form Mortality Review Date: 12/28/2016 12:58:00 PM From: Martha Whipple RN, CCDS Admit Date: 12/20/2016 3:40:00 PM Patient Name: Carmen Ceballos Visit Number: [id number] Dr. Luke Gross History/Risk Factors: HTN, S/P L hip arthroplasty, acute expected blood loss anemia, chronic systolic CHF with 2 doses of IVP Lasix given this admission Clinical Indicators: Patient presents with a BUN: 24/18/46/45 CR: .8/.77/1.5/1.4 GFR: >60/33/36 8/2/17 Patients baseline BUN/CR/GFR: 11/.71/>60 Pt also had confusion, agitation, obtundation, acute respiratory failure, aspiration pneumonia Treatment: Consults: Cardiology, Neurology IVF 0.9% NS 500 cc bolus followed by 100 cc/hr Other: Lasix 10 mg IVP x1, Lasix 20 mg IVP x2 In order to capture the severity of condition, please clarify if the condition signifies: Acute renal failure Please specify (if known): Cortical, Medullary, or Tubular Necrosis? Acute kidney injury Acute on chronic renal failure Chronic renal failure, please stage Chronic kidney disease (CKD) and please stage Stage 1 GFR >90 Stage 2 GFR 60-89 Stage 3 GFR 30-59 Stage 4 GFR 15-29 Stage 5 GFR <15 ESRD Unable to determine Other, specify Please document in your summary in order to capture severity of illness and risk of mortality. Include clinical findings that support your diagnosis. FYI: Press F11 to launch patient chart. Place X here if this finding has no clinical significance, is not applicable or if you are not able to provide any additional documentation. MTDD
--- NOTE | 2016-12-28 13:20 | CDI ---
In responding to this query, please exercise your independent professional judgment. The [facility] Coding Staff and Clinical Documentation Specialists appreciate your assistance in clarifying documentation, maintaining compliance with coding guidelines, accurately documenting patients condition and capturing severity of illness. The fact that a question is asked does not imply that any particular answer is desired or expected. Communication forms are a method of clarifying documentation and are not made part of the Legal Health Record. Thank you in advance for your clarification. Last Revision, March 2015 Asher Cooper [address] [facility] [place] [address] Documentation Clarification Form Mortality review Date: 12/28/2016 1:09:00 PM From: Martha Whipple RN, CCDS Admit Date: 12/20/2016 3:40:00 PM Patient Name: Carmen Ceballos Visit Number: [id number] Dr. Luke Gross History/Risk Factors: Hemiarthroplasty this admission, gerd, HTN, Confusion and agitation this admission Clinical Indicators: 12/23 Medical progress Note: Possible aspiration pneumonia might be contributing factor. Right lower lobe pneumonia: Possibly aspiration." 12/24 Medical progress note: She was treated aggressively with IV fluids and broad-spectrum antibiotic for an underlying pneumonia." WBC: 24/15.5/20/11.3 Left shift: 21.6/13.7/16.8/8.5 CXR:"There is new mild pneumonia in the right lower lobe compared to last exam. No heart failure. " Lung/Breathing assessment: "Respiratory: Lungs diffuse rhonchi all over the chest. Treatment: Antibiotics: Zosyn 3.375gm IVPB q 8 hrs, Cefazolin 2gm IVPB q 8 hrs. O2: 86% RA, 82% 6L Breathing TX: Duoneb Q 4 hrs In order to capture the severity of condition, please clarify if the condition signifies and you are treating for: Aspiration Pneumonia, identify if: Due to solids or liquids Bacterial Pneumonia, specify causal organism (if known) Gram Negative Pneumonia Due to Strep Due to Staph Due to E. coli Other bacteria (specify) Ventilator Associated Pneumonia Unable to determine Link any associated conditions to the pneumonia: Influenza with secondary gram negative pneumonia Sepsis due to pneumonia Acute respiratory failure due to pneumonia Other, please specify Please document in your summary in order to capture severity of illness and risk of mortality. Include clinical findings that support your diagnosis. FYI: Press F11 to launch patient chart. Place X here if this finding has no clinical significance, is not applicable or if you are not able to provide any additional documentation. KENDYD
--- NOTE | 2016-12-28 13:28 | CDI ---
In responding to this query, please exercise your independent professional judgment. The [facility] Coding Staff and Clinical Documentation Specialists appreciate your assistance in clarifying documentation, maintaining compliance with coding guidelines, accurately documenting patients condition and capturing severity of illness. The fact that a question is asked does not imply that any particular answer is desired or expected. Communication forms are a method of clarifying documentation and are not made part of the Legal Health Record. Thank you in advance for your clarification. Last Revision, July 2016 Asher Cooper [address] [place] [address] Documentation Clarification Form Mortality Review Date: 12/28/2016 1:20:00 PM From: Martha Whipple RN, CCDS Admit Date: 12/20/2016 3:40:00 PM Patient Name: Carmen Ceballos Visit Number: [id number] Dr. Luke Gross HX of systolic CHF is documented in the medical and cardiology progress notes. History/Risk Factors: Gerd, Aspiration pneumonia, acute respiratory failure Clinical Indicators: VS/Pulse OX: Temp 98.3, hr 94, RR 18, B/P 143/82, spo2 96% ra BNP: 1190 Echocardiogram Results: no previous Echo results available 12/23 Chest X Ray: There is new mild pneumonia in the right lower lobe compared to last exam. No heart failure. Treatment: IV Lasix 10 mg IVP and IV Lasix 20 mg IVP x2, Lasix 40 mg IVP x1 Aldactone 25mg PO QD Consults: Medical and Cardiology In your professional opinion, can you please clarify the acuity and type of CHF if known? Systolic Heart Failure: Acute Chronic Acute on Chronic Unable to determine Other, please specify Please document in your summary in order to capture severity of illness and risk of mortality. Include clinical findings that support your diagnosis. FYI: Press F11 to launch patient chart. Place X here if this finding has no clinical significance, is not applicable or if you are not able to provide any additional documentation. MTDD
--- NOTE | 2017-01-03 12:07 | P.DS ---
Providers Date of admission: 12/20/16 15:40 Attending physician: Luke Gross Consults: 12/20/16 15:40 Consult Physician Routine Consulting Provider: Brendan Roberts Consult Reason/Comments: known Do you want consulting provider notified?: Yes Primary care physician: Adriana Perla Hospital Course: Date of admission: 12/20/2016 Date of discharge: 12/25/2016 () Admission diagnosis: Left femoral neck fracture Discharge diagnosis: Status post left hip hemiarthroplasty, patient in hospital on 12/25/2016 Attending physician: Dr. Gross Surgical procedures: Left hip hemiarthroplasty Brief history: Patient is a 86-year-old female who was brought to [facility] on 12/20/2016 after sustaining a fall in her home. Upon arrival to the hospital, imaging and lab tests were done. Images demonstrated an impacted left femoral neck fracture. Patient was admitted under our orthopedic care, and the proper consults were placed for surgical clearance. A known diagnosis of nonischemic cardiomyopathy with chronic systolic heart failure was noted by cardiology. They rated her as a high risk for surgical intervention, but no absolute contraindication to surgery. They did adjust her medications slightly by discontinuing the Norvasc. Internal medicine also cleared the patient for surgery with known high risk. The risk and benefits of surgery were again discussed with the patient and the family, they elected for surgical intervention, this is scheduled for 12/21/2016. Hospital course: Details of patient's surgery can be found in operative report. Patient tolerated the procedure well and was subsequently transported to orthopedic floor. Patient's orthopeidc and medical care was provided daily. Patient had daily laboratory tests performed for evaluation of overall blood counts. Patient had daily physical therapy to include strengthening range of motion as well as education with walker ambulation. Patient was treated with Lovenox for their postoperative DVT prophylaxis during their inpatient stay. Patient reported satisfactory pain control with oral pain medications by postoperative day 0. Patient showed satisfactory progress with physical therapy initially. Her initial postoperative day, patient was doing very well. I was contemplating sending her home the following day with home therapy due to her significant progress. The morning of 12/23/2016, patient was noted to have a significant change in her mental status. A multitude to test were ordered by the medical specialties following this patient, including a arterial blood gas, CT of the brain, and chest x-rays. Chest x-rays revealed right lower lobe pneumonia, they contributed it to a likely aspiration pneumonia. Patient's overall status continued to decline, an A team was called for the patient. There is no obvious acute cardiac events that were noted. Due to the patient's worsening health status, she was transferred to the ICU. Neurology consult was placed, they attributed no acute intracranial causes of her current mental status. Patient was then placed on BiPAP in the ICU. Once on the ICU, the treatment options for this patient were being placed on a ventilator or comfort care. This was discussed with the family, they decided on comfort care. Patient was then placed on comfort care on 12/24/2016, and on 12/25/2016. Diagnosis: 1. Unexpected Left femoral neck fracture due to fall, status post left hip hemiarthroplasty 2. Unexpected Severe sepsis due to secondary aspiration pneumonia 3. Unexpected Acute hypoxic respiratory failure 4. Unexpected Metabolic encephalopathy secondary to above 5. Unexpected Acute on chronic systolic congestive heart failure managed by cardiology 6. Inherent Acute kidney injury secondary to diuretics 7. Expected Acute blood loss anemia Discharge condition/disposition: Patient on 12/25/2016, preliminary cause of likely respiratory failure due to aspiration pneumonia and history of congestive heart failure. Procedures: Left hip hemiarthroplasty Plan - Discharge Summary New Discharge Prescriptions: No Action fluvoxaMINE [Luvox] 100 mg PO TID lamoTRIgine [LaMICtal] 200 mg PO TID clonazePAM [KlonoPIN] 0.5 mg PO BID PRN PRN Reason: Anxiety Multivitamins, Thera [Multivitamin (formulary)] 1 tab PO DAILY Lisinopril [Zestril] 5 mg PO DAILY #30 tab Metoprolol Tartrate 25 mg PO BID #60 tab Spironolactone [Aldactone] 25 mg PO DAILY #30 tablet amLODIPine [Norvasc] 5 mg PO DAILY Discharge Medication List clonazePAM [KlonoPIN] 0.5 mg PO BID PRN 09/06/13 [History] fluvoxaMINE [Luvox] 100 mg PO TID 09/06/13 [History] lamoTRIgine [LaMICtal] 200 mg PO TID 09/06/13 [History] Multivitamins, Thera [Multivitamin (formulary)] 1 tab PO DAILY 12/06/16 [History ] Lisinopril [Zestril] 5 mg PO DAILY #30 tab 12/08/16 [Rx] Metoprolol Tartrate 25 mg PO BID #60 tab 12/08/16 [Rx] Spironolactone [Aldactone] 25 mg PO DAILY #30 tablet 12/08/16 [Rx] amLODIPine [Norvasc] 5 mg PO DAILY 12/20/16 [History] Discharge Disposition: - Preliminary Cause of Preliminary Cause of : Acute hypoxic respiratory failure due to likely aspiration pneumonia
== END 2016-12-25 03:04 | disposition expired | DRG 469 ==
LOC: EC 12:17 → 3SUR 15:40 → 6ICU 12-23 18:39
PROVIDERS: ADMIT Orthopaedic Surgery; ATTEND Orthopaedic Surgery
PROC: 0SRS01A Replacement of Left Hip Joint, Femoral Surface with Metal Synthetic Substitute, Uncemented, Open Approach (ICD-10-PCS; principal; 2016-12-21 07:30)
DX: S72.002A Fracture of unspecified part of neck of left femur, initial encounter for closed fracture (principal); J69.0 Pneumonitis due to inhalation of food and vomit; R65.20 Severe sepsis without septic shock; J96.01 Acute respiratory failure with hypoxia; I50.23 Acute on chronic systolic (congestive) heart failure; G93.41 Metabolic encephalopathy; N17.9 Acute kidney failure, unspecified; A41.9 Sepsis, unspecified organism; I42.9 Cardiomyopathy, unspecified; D62 Acute posthemorrhagic anemia; E87.1 Hypo-osmolality and hyponatremia; Z66 Do not resuscitate; Z51.5 Encounter for palliative care; I95.9 Hypotension, unspecified; I11.0 Hypertensive heart disease with heart failure; I48.91 Unspecified atrial fibrillation; E78.5 Hyperlipidemia, unspecified; T50.2X5A Adverse effect of carbonic-anhydrase inhibitors, benzothiadiazides and other diuretics, initial encounter; I44.7 Left bundle-branch block, unspecified; F32.9 Major depressive disorder, single episode, unspecified; F41.9 Anxiety disorder, unspecified; K21.9 Gastro-esophageal reflux disease without esophagitis; G89.29 Other chronic pain; K57.90 Diverticulosis of intestine, part unspecified, without perforation or abscess without bleeding; M54.9 Dorsalgia, unspecified; R01.1 Cardiac murmur, unspecified; R74.8 Abnormal levels of other serum enzymes; H91.90 Unspecified hearing loss, unspecified ear; K59.00 Constipation, unspecified; Z79.899 Other long term (current) drug therapy; Z96.653 Presence of artificial knee joint, bilateral; Z82.49 Family history of ischemic heart disease and other diseases of the circulatory system; W18.30XA Fall on same level, unspecified, initial encounter; Y92.009 Unspecified place in unspecified non-institutional (private) residence as the place of occurrence of the external cause
CPT/HCPCS: 36415; 36600; 70450; 71010; 72125; 73501; 73502; 80048; 80053; 81003; 82550; 82553; 82805; 83605; 83735; 83880; 84100; 84484; 85025; 85610; 85730; 87086; 88305; 88311; 93005; 94640; 96361; 96374; 96376; 99285